=== PATIENT | male | born 1970 | race Caucasian/White ===

== ENCOUNTER 2017-01-13 00:59 | Emergency (ER) | payer BC ==
[2017-01-13] MEDS ORDERED: DUONEB 0.5-3 MG/3 ml Neb IH ONE (01:04)
[2017-01-13] MEDS ORDERED: Sodium Chloride 0.9% 1000 ML 0 ML ONE (01:04)
[2017-01-13] MEDS ORDERED: solu-MEDROL 125 MG ONE (01:04)
[2017-01-13] MEDS ORDERED: PROVENTIL 2.5 MG/3 ML NEB IH ONE ×4 (01:05→01:19)
[2017-01-13] MEDS ORDERED: Robitussin AC Syrup Unit Dose Cup PO PRN (01:07)
[2017-01-13] MEDS ORDERED: Rocephin 1000 MG INJ IM ONE (01:08)
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
[2017-01-13] MEDS ORDERED: DECADRON 10MG INJ. IM ONE (01:18)
[2017-01-13] MEDS ORDERED: Robitussin AC Syrup Unit Dose Cup ONE (01:20)
[2017-01-13] MEDS ORDERED: Rocephin 1000 MG INJ ONE (01:20)
[2017-01-13] MEDS ORDERED: XYLOCAINE 1% HCL 20 ML MDV ONE (01:21)
[2017-01-13] MEDS ORDERED: DECADRON 10MG INJ. ONE (01:27)
[2017-01-13 02:28] VITALS: BP 138/88; PULSE 95; O2SAT 96
== END 2017-01-13 02:30 | disposition home or self-care (01) ==
LOC: ED 00:59
DX: J45.909 Unspecified asthma, uncomplicated (principal); J02.9 Acute pharyngitis, unspecified
CPT/HCPCS: 94640; 96372; 99284; J0696; J1100; J2930; A9270-GY

== ENCOUNTER 2017-12-19 03:03 | Emergency (ER) | payer BC ==
[2017-12-19] MEDS ORDERED: PROVENTIL 2.5 MG/3 ML NEB IH ONE ×4 (03:10→04:13)
[2017-12-19] MEDS ORDERED: solu-MEDROL 125 MG IV ONE (03:10)
[2017-12-19] MEDS ORDERED: solu-MEDROL 125 MG ONE (03:14)
--- NOTE | 2017-12-19 03:15 | ERPHSYRPT ---
- History of Present Illness Time Seen by Provider: 12/19/17 03:08 Source: patient Exam Limitations: no limitations Physician History: This is a 47-year-old white male with history of asthma he arrives with complaint of shortness of breath for approximately a week he states he's been wheezing. He states he was seen by his family doctor placed on steroids he states he ran out of steroids he states for the last 2 days he's had increasing cough wheezing and shortness of breath. He has pain with deep breathing in his chest otherwise not. He has no fevers nausea or vomiting. Past medical history includes asthma. Past surgical history includes tonsillectomy and adenoidectomy. Social history former smoker Timing/Duration: week(s) (one week) Activities at Onset: none Severity of Dyspnea-Max: moderate Severity of Dyspnea-Current: moderate Possible Cause: occasional episodes Modifying Factors: Improves With: albuterol inhaler Associated Symptoms: cough, chest pain/discomfort (pain with deep breathing), wheezing, No edema, No fever, No insomnia, No loss of appetite, No lightheadedness, No weakness, No ankle swelling, No chills, No hemoptysis, No calf pain, No dizziness, No heaviness, No heart racing, No lightheadedness, No leg swelling, No muscle spasms feet, No muscle spasms hands, No painful breathing, No productive cough, No sweating, No tightness, No tingling face, No tingling hands International travel in last 2 weeks: No Allergies/Adverse Reactions: No Known Drug Allergies Allergy (Verified 01/13/17 01:00) Home Medications: Albuterol Sulfate [Proair Hfa] 8.5 gm IH QIDPRN PRN 10/03/15 [History] Fluticasone/Vilanterol [Breo Ellipta 100-25 Mcg INH] 1 each IH DAILY 10/03/15 [ History] Montelukast Sodium [Singulair] 10 mg PO DAILY 01/13/17 [History] Hx Tetanus, Diphtheria Vaccination/Date Given: Yes Hx Influenza Vaccination/Date Given: No Hx Pneumococcal Vaccination/Date Given: No - Review of Systems Constitutional: No Fever, No Chills Eyes: No Symptoms Ears, Nose, & Throat: No Symptoms Respiratory: Cough, Dyspnea, Wheezing Cardiac: Chest Pain (anterior chest pain with deep breathing) Abdominal/Gastrointestinal: No Abdominal Pain, No Nausea, No Vomiting, No Diarrhea Genitourinary Symptoms: No Dysuria Musculoskeletal: No Back Pain, No Neck Pain Skin: No Rash Neurological: No Dizziness, No Focal Weakness, No Sensory Changes Psychological: No Symptoms Endocrine: No Symptoms Hematologic/Lymphatic: No Symptoms Immunological/Allergic: No Symptoms All Other Systems: Reviewed and Negative - Past Medical History Pertinent Past Medical History: Yes Neurological History: No Pertinent History ENT History: No Pertinent History Cardiac History: No Pertinent History Respiratory History: Asthma Endocrine Medical History: No Pertinent History Musculoskeletal History: No Pertinent History GI Medical History: No Pertinent History History: No Pertinent History Psycho-Social History: No Pertinent History Male Reproductive Disorders: No Pertinent History - Past Surgical History Past Surgical History: No Neuro Surgical History: No Pertinent History Cardiac: No Pertinent History Respiratory: No Pertinent History Gastrointestinal: No Pertinent History Genitourinary: No Pertinent History Musculoskeletal: No Pertinent History Male Surgical History: No Pertinent History Other Surgical History: tonsilectomy - Social History Smoking Status: Former smoker Exposure to second hand smoke: No Drug Use: none Patient Lives Alone: No Significant Family History: no pertinent family hx - Nursing Vital Signs Nursing Vital Signs: Initial Vital Signs Temperature 98.0 F 12/19/17 03:08 Pulse Rate 92 H 12/19/17 03:08 Respiratory Rate 20 12/19/17 03:08 Blood Pressure 159/88 12/19/17 03:08 O2 Sat by Pulse Oximetry 91 L 12/19/17 03:08 Pain Scale Pain Intensity 4 - Physical Exam General Appearance: mild distress Eye Exam: PERRL/EOMI Ears, Nose, Throat Exam: hearing grossly normal, normal ENT inspection, normal pharynx, No abnormal TM (R), No abnormal TM (L), No sinus pain/drainage, No hearing decreased, No nasal congestion, No pharyngeal erythema, No tonsillar exudate, No tonsillar swelling Neck Exam: normal inspection, supple Respiratory Exam: diminished breath sounds, wheezing Cardiovascular/Chest Exam: normal heart sounds Abdominal/Gastrointestinal Exam: soft, No tenderness, No distention, No mass Extremity Exam: non-tender, normal range of motion, normal inspection, no calf tenderness, no pedal edema Peripheral Pulses Exam: dorsalis-pedis (R): 2+, dorsalis-pedis (L): 2+ Neurologic Exam: alert, oriented x 3, cooperative, game show host II-XII nml as tested, sensation nml, No motor deficits Skin Exam: normal color, warm, No dry SpO2 Interpretation: normal (91%) - Course Nursing assessment & vital signs reviewed: Yes EKG Interpreted by Me: RATE (93 bpm), Sinus Rhythm, NORMAL AXIS, Other (EKG: Sinus rhythm, 93 bpm, normal axis, no acute ST or T wave changes, normal EKG) - Radiology Exams Chest X-ray Interpretation: Interpreted by me, Other (no acute isease process noted) Ordered Tests: Active Orders 24 hr Category Date Time Status Delinquency Prevention Social Worker STAT Care 12/19/17 03:10 Active EKG-ER Only STAT Care 12/19/17 03:10 Active IV Insertion STAT Care 12/19/17 03:10 Active Pulse Oximetry (ED) STAT Care 12/19/17 03:10 Active CHEST 1 VIEW (PORTABLE) Stat Exams 12/19/17 03:10 Taken CBC W DIFF Stat Lab 12/19/17 03:20 Completed CMP Stat Lab 12/19/17 03:20 Completed VENOUS BLOOD GAS Stat Lab 12/19/17 03:27 Completed Respiratory Nebulizer STAT RT 12/19/17 03:11 Completed Respiratory Nebulizer STAT RT 12/19/17 04:08 Completed Medication Summary Discontinued Medications Generic Name Dose Route Start Last Admin Trade Name Muraliq PRN Reason Stop Dose Admin Albuterol Sulfate 2.5 mg 12/19/17 03:10 12/19/17 03:19 Proventil 2.5 Mg/3 Ml Neb IH 12/19/17 03:11 2.5 mg STAT ONE Administration Albuterol Sulfate Confirm 12/19/17 03:16 Proventil 2.5 Mg/3 Ml Neb Administered 12/19/17 03:17 Dose 2.5 mg IH .STK-MED ONE Albuterol Sulfate 2.5 mg 12/19/17 04:08 12/19/17 04:14 Proventil 2.5 Mg/3 Ml Neb IH 12/19/17 04:09 2.5 mg STAT ONE Administration Albuterol Sulfate Confirm 12/19/17 04:13 Proventil 2.5 Mg/3 Ml Neb Administered 12/19/17 04:14 Dose 2.5 mg IH .STK-MED ONE Azithromycin 500 mg 12/19/17 04:23 Zithromax 250 Mg Tablet PO 12/19/17 04:24 STAT ONE Methylprednisolone Sodium Succinate 125 mg 12/19/17 03:10 12/19/17 03:16 Solu-Medrol 125 Mg IV 12/19/17 03:11 125 mg STAT ONE Administration Methylprednisolone Sodium Succinate Confirm 12/19/17 03:14 Solu-Medrol 125 Mg Administered 12/19/17 03:15 Dose 125 mg .ROUTE .STK-MED ONE Lab/Rad Data: Laboratory Result Diagrams 12/19/17 03:20 12/19/17 03:20 Laboratory Results 12/19/17 12/19/17 12/19/17 Range/Units 03:27 03:20 03:20 WBC 12.7 H (4.0-10.5) K/mm3 RBC 5.06 (4.1-5.6) M/mm3 Hgb 15.5 (12.5-18.0) gm/dl Hct 45.2 (42-50) % MCV 89.3 (78-100) fl MCH 30.6 (26-32) pg MCHC 34.3 (32-36) g/dl RDW 13.7 (11.5-14.0) % Plt Count 282 (150-450) K/mm3 MPV 9.7 H (6-9.5) fl Gran % 75.5 H (36.0-66.0) % Eos # (Auto) 0.34 (0-0.5) Lymphocytes % 14.8 L (24.0-44.0) % Monocytes % 6.8 (0.0-12.0) % Eosinophils % 2.7 (0.00-5.0) % Basophils % 0.2 (0.0-0.4) % Absolute Granulocytes 9.61 H (1.4-6.9) Basophils # 0.03 (0-0.4) VBG pH 7.38 (7.32-7.42) VBG pCO2 at Pat Temp 50 (42-55) mm/Hg VBG pO2 at Pat Temp 23 L (25-40) mm/Hg VBG HCO3 29.6 H* (22-28) meq/L VBG O2 Sat (Marko) 52.1 L (95-100) VBG Base Excess 3.2 H (-2.0-2.0) VBG Hemoglobin 16.1 VBG Carboxyhemoglobin 2.2 (0.0-6.9) % T HGB POC Potassium 3.4 L (3.5-5.1) Sodium 141 (137-145) mmol/L Potassium 3.4 L (3.5-5.1) mmol/L Chloride 101 (98-107) mmol/L Carbon Dioxide 28 (22-30) mmol/L Anion Gap 15.4 H (5-15) MEQ/L BUN 15 (9-20) mg/dL Creatinine 0.80 (0.66-1.25) mg/dL Estimated GFR > 60 ML/MIN Glucose 98 (74-106) mg/dL Calcium 10.1 (8.4-10.2) mg/dL Total Bilirubin 0.40 (0.2-1.3) mg/dL AST 18 (17-59) U/L ALT 26 (0-50) U/L Alkaline Phosphatase 70 (38-126) U/L Serum Total Protein 7.5 (6.3-8.2) g/dL Albumin 4.5 (3.5-5.0) g/dL - Progress Progress: improved Air Movement: fair Progress Note: 12/19/17 04:08 47-year-old white male with history of asthma with complaint of shortness of breath coughing for a week he states that he was placed on prednisone by his family doctor however he has been out of it and for the last 2 days he has been feeling worse. Patient with mild bilateral wheezes throughout on arrival patient with a normal O2 saturation Patient's chest x-ray no acute disease process noted EKG normal sinus rhythm 93 bpm normal axis no acute ST or T wave changes normal EKG patient with venous gases that showed pH of 7.38 PCO2 of 50 chemistry is essentially normal and patient with a white count of 12.7 hemoglobin 15 5 hematocrit 45.2 patient is feeling better after albuterol treatment and Solu-Medrol 125 IV. I will give patient another albuterol treatment Patient feels like he can most likely go home we will reassess after second albuterol treatment Anticipate discharged with tapering dose of prednisone and Zithromax patient to continue albuterol treatments at home. 12/19/17 04:28 Patient is feeling better. Plan to discharge. Patient has a nebulizer at home. Patient will be given Zithromax 500 mg here in the emergency room given a prescription for additional Zithromax and taper of prednisone. - Departure Time of Disposition: 04:29 Departure Disposition: Home Clinical Impression: Asthma exacerbation Qualifiers: Asthma severity: moderate Asthma persistence: unspecified Qualified Code(s): J45.901 - Unspecified asthma with (acute) exacerbation Condition: Fair Critical Care Time: No Referrals: JOSEPH FALK [Primary Care Provider] - Additional Instructions: Return home. Plenty of fluids. Use your albuterol inhaler every 4-6 hours as needed. Tapering dose of prednisone as directed. Zithromax Z-Miah as prescribed. Follow-up with your family doctor. Return for acute distress or for severe symptoms. Prescriptions: Azithromycin 250 mg [Zithromax 250 MG TABLET] 250 mg PO DAILY #4 tablet
[2017-12-19 03:27] LABS: BASOPHIL % 0.2 % (0.0-0.4); Basophil (Absolute #) 0.03 (0-0.4); Eosinophil % 2.7 % (0.00-5.0); Eosinophil (Absolute #) 0.34 (0-0.5); Granulocyte Absolute (ANC) 9.61 (1.4-6.9); Granulocytes % 75.5 % (36.0-66.0); Hematocrit 45.2 % (42-50); Hemoglobin 15.5 gm/dl (12.5-18.0); Lymphocyte (Absolute #) 1.89 (1.0-4.6); Lymphocytes % 14.8 % (24.0-44.0); Mean Cell Volume 89.3 fl (78-100); Mean Corpuscular Hemoglobin 30.6 pg (26-32); Mean Corpuscular Hgb Concent. 34.3 g/dl (32-36); Mean Platelet Volume 9.7 fl (6-9.5); Monocyte (Absolute #) 0.87 (0.0-1.3); Monocytes % 6.8 % (0.0-12.0); Platelet Count 282 K/mm3 (150-450); Red Blood Count 5.06 M/mm3 (4.1-5.6); Red Cell Distribution Width 13.7 % (11.5-14.0); White Blood Count 12.7 K/mm3 (4.0-10.5)
[2017-12-19 03:37] LABS: VBG BASE EXCESS 3.2 (-2.0-2.0); VBG CARBOXYHEMOGLOBIN 2.2 % T HGB (0.0-6.9); VBG HCO3- 29.6 meq/L (22-28); VBG HEMOGLOBIN 16.1; VBG O2 SATURATION 52.1 (95-100); VBG POTASSIUM 3.4 (3.5-5.1); VBG pH 7.38 (7.32-7.42)
[2017-12-19 03:43] LABS: ALBUMIN 4.5 g/dL (3.5-5.0); ALKALINE PHOSPHATASE 70 U/L (38-126); ANION GAP 15.4 MEQ/L (5-15); BLOOD UREA NITROGEN 15 mg/dL (9-20); CHLORIDE 101 mmol/L (98-107); Calcium 10.1 mg/dL (8.4-10.2); Carbon Dioxide 28 mmol/L (22-30); Glucose 98 mg/dL (74-106); Potassium 3.4 mmol/L (3.5-5.1); SGOT/AST 18 U/L (17-59); SGPT/ALT 26 U/L (0-50); SODIUM 141 mmol/L (137-145); Total Protein 7.5 g/dL (6.3-8.2)
[2017-12-19 04:19] VITALS: O2SAT 91
[2017-12-19] MEDS ORDERED: Zithromax 250 MG TABLET PO ONE (04:23)
[2017-12-19] MEDS ORDERED: Zithromax 250 MG TABLET ONE (04:42)
[2017-12-19 04:50] VITALS: BP 146/90; PULSE 99
--- NOTE | 2017-12-19 09:45 | XRAY ---
Indication: Wheezing. History asthma. Comparison: December 17, 2016. Portable chest demonstrates normal heart and lungs. Bony thorax intact. No new/acute findings.
== END 2017-12-19 05:14 | disposition home or self-care (01) ==
LOC: ED 03:03
DX: J45.901 Unspecified asthma with (acute) exacerbation (principal); R07.9 Chest pain, unspecified
CPT/HCPCS: 36000; 36415; 71045; 80053; 82805; 85025; 93005; 93041; 94640; 96374; 99284; J2930; A9270-GY

== ENCOUNTER 2019-01-08 02:34 | Emergency (ER) | payer BC ==
[2019-01-08 02:46] VITALS: BP 141/75; PULSE 116; O2SAT 96
[2019-01-08] MEDS ORDERED: Hydromorphone 1 mg/ml Ampule IM ONE (03:10)
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
[2019-01-08] MEDS ORDERED: Phenergan 25 MG INJ IM ONE (03:11)
[2019-01-08] MEDS ORDERED: Hydromorphone 1 mg/ml Ampule ONE (03:18)
[2019-01-08] MEDS ORDERED: Phenergan 25 MG INJ ONE (03:18)
[2019-01-08] MEDS ORDERED: Norco 10/325 MG Tablet PO ONE (03:44)
[2019-01-08] MEDS ORDERED: Norco 10/325 MG Tablet ONE (03:49)
--- NOTE | 2019-01-08 08:52 | XRAY ---
Indication: Pain following injury. Comparison: None 3 views of the left hand demonstrates old 5th metacarpal shaft fracture and a mildly displaced/comminuted acute fracture involving the 5th metacarpal base with soft tissue swelling. Remaining hand unremarkable.
== END 2019-01-08 04:00 | disposition home or self-care (01) ==
LOC: ED 02:34
DX: S62.307A Unspecified fracture of fifth metacarpal bone, left hand, initial encounter for closed fracture (principal); W22.8XXA Striking against or struck by other objects, initial encounter; Y93.B1 Activity, exercise machines primarily for muscle strengthening; Y92.89 Other specified places as the place of occurrence of the external cause; Y99.9 Unspecified external cause status
CPT/HCPCS: 29126; 73130; 96372; 99284; J1170; J2550; A9270-GY

== ENCOUNTER 2019-08-17 09:19 | Day surgery (SDC) | payer BC ==
[~2019-08-17 09:19] MED LIST: Ak-Dilate OPHTHALMIC*** 1.065 ML, Cyclogyl 1% OPHTH SOL 5 ML 1.065 ML, GATIFLOXACIN 0.5... OP ONE; Lactated Ringers 1,000 ML IV ONE; Lactated Ringers 1,000 ML IV SCH; TETRACAINE 0.5% STERI-UNIT SOL OP ONE
[2019-08-17] MEDS ORDERED: Epinephrine Preservative Free 1 MG/ML INTRAOP ONE (11:00)
[2019-08-17] MEDS ORDERED: BETADINE 5% OPHTHALMIC 30 ML OP ONE (11:00)
[2019-08-17] MEDS ORDERED: BSS 500 ML, Fortaz/Tazicef 1 GM** 0.2 G IO ONE ×2 (11:00)
[2019-08-17] MEDS ORDERED: LIDOCAINE HCL 1% AMPUL 5 ML IJ ONE (11:00)
[2019-08-17] MEDS ORDERED: Versed 2 MG/2 ML Injection ONE (11:16)
[2019-08-17] MEDS ORDERED: DIPRIVAN 200 MG/20 ML IV ONE ×2 (11:20)
[2019-08-17] MEDS ORDERED: ACETAZOLAMIDE 250 MG TABLET PO ONE (11:30)
[2019-08-17] MEDS ORDERED: Zofran 4 MG/2 ML VIAL IV PRN (11:30)
[2019-08-17 12:19] VITALS: BP 151/81; PULSE 63; O2SAT 97
--- NOTE | 2019-08-18 08:37 | OP ---
DATE/TIME OF OPERATION: 08/17/2019 1114 TIME DICTATED: 1302 PREOPERATIVE DIAGNOSIS: Senile cataract of right eye. POSTOPERATIVE DIAGNOSIS: Senile cataract of right eye. SURGEON: Darion Gonzalez MD SPRING ASSEMBLER: None. OPERATION: Cataract extraction of right eye with an intraocular lens implant. STANDARD __X__ COMPLEX ANESTHESIA: MAC. ___X___ Monitored anesthesia care in combination with topical and intra-cameral anesthesia (because of the established specific risk of reflux, arrhythmias, or an anxiety attack associated with ocular manipulation as well as difficulty of the warm in to manage such potentially catastrophic events while simultaneously attempting to complete the surgical procedure, it was deemed necessary for the patient's safety to have an anesthesiologist or a nurse drive in theater attendant present during the procedure whenever possible. The anesthesiologist or the nurse drive in theater attendant was utilized to monitor and regulate the intravenous sedation of the patient, so the patient was cooperative, relaxed, and comfortable). Topical anesthesia using Tetracaine eye drops together with intra cameral anesthesia using Lidocaine 1% MPF. The nurse was utilized to monitor the patient. ANESTHESIA PROVIDER: Angel Garcia CRNA. COMPLICATIONS: None. BLOOD LOSS: None. INDICATIONS: The patient is undergoing cataract surgery in the hopes of eliminating the visual complaints and difficulty. PROCEDURE: After arriving at the facility's outpatient surgery area, an IV was started; the patient was given 5 mg of p.o. Versed. (If an anesthesia provider was not monitoring the patient) The patient was then given topical anesthetic Tetracaine eye drops. A cotton pellet was soaked into a solution of a combination of Zymaxid 0.5%, Christopher-Synephrine 2.5% and Ocufen (other drops might have been substituted referenced in the patient's record). The pellet was inserted by the RN into the lower conjunctival cul-de-sac with a sterile forceps and left for 20 minutes. The pellet was then removed by the RN with a sterile forceps before taking the patient to the operating room. The preoperative area nurse identified the patient and marked the correct eye to be operated on. I identified the correct eye to be operated on and marked it appropriately in the outpatient surgery area. The patient was then taken into the operating room. Tetracaine eye drops were installed again in the correct eye. The eyelids and the lashes and the lid margins were scrubbed with Betadine solution. One drop of the diluted Betadine solution was placed in the conjunctival cul-de-sac for 45 seconds and then was irrigated. A drop of Tetracaine Gel was placed in the conjunctival cul-de-sac. The patient's forehead was taped to secure it during the procedure. The patient was monitored. The patient was then draped in the usual way for this procedure. An eye speculum was used to separate the eyelids. The eye was then fixated and a temporal 2.5 mm incision was made in the clear cornea temporally at the limbus. Through the incision, 0.25 cc of 1% non-preserved lidocaine was injected into the anterior chamber for intracameral anesthesia. The anterior chamber was then filled with viscoelastic. The pupil was small. I felt that it would be safer to mechanically dilate the pupil. A Malyugin ring was used at this point which dilated the pupil. That was removed at the end of the procedure prior to aspiration of the viscoelastic from the anterior chamber and posterior to the intraocular lens implant. The cataract had a great amount of cortical changes. That rendered seeing the anterior capsule difficult for a safe performance of an anterior capsulotomy. I injected an air bubble into the anterior chamber. I then injected 1 ML of vision blue solution into the anterior chamber. The vision blue solution was irrigated from the anterior chamber after 30 seconds. The anterior capsule was stained which facilitated performing the anterior capsulotomy safely. After that was completed, a cystotome was introduced into the anterior chamber and a round anterior capsulotomy was performed. The capsule was removed by a forceps. Hydrodissection was next carried utilizing a 25-gauge cannula and balanced salt solution to delineate the cortical material from the capsule and the nucleus from the cortical material. The nucleus was rotated freely into the capsular bag with no difficulty. The phaco tip of the [facility] Phacoemulsifier was introduced into the anterior chamber and two grooves were made into the nucleus 90 degrees apart. Using two spatulas resulted into the nucleus being fractured into four quadrants. The phaco tip was then used to remove each quadrant of the nucleus. Viscoelastic was used during this process to protect the corneal endothelium. Once the entire nucleus was removed, the phaco tip then was removed and the irrigation tip was introduced into the eye and the cortex was removed. The posterior capsule was polished. It was noticed that there was a tear into the posterior capsule with few vitreous strands into the pupil plan. An anterior vitrectomy was performed. A 17.50 diopter, [id number], posterior chamber lens implant, was inspected and found to be grossly normal. The implant was inserted into the implant injector cartridge; Viscoelastic again was introduced into the anterior chamber, which filled the capsular bag. The implant injector's cartridge tip was placed at the limbal wound and the posterior chamber implant was released into the capsular bag and rotated appropriately. The implant was found to be into the capsular bag and it was centered. 0.2 ml of Tri-Moxi was introduced via 27 gauge cannula into the vitreous cavity through the ciliary processes. Viscoelastic was aspirated from the anterior chamber and posterior to the intraocular lens implant from the capsular bag using the irrigating tip. The anterior chamber was irrigated and filled with 5 cc antibiotic solution (500 cc of BSS plus 2 ml of Fortaz 100 mg/ml) ( if patient was not allergic to the medication). The lips of the corneal incision were hydrated using BSS solution. The anterior chamber was checked and found to be water tight. ___X__ One drop each of antibiotic, steroid and NSAID drops (refer to chart for drops used) were placed in the conjunctival cul-de-sac of the operated eye. Patient tolerated the procedure quite well and left the operating room in satisfactory condition. DISCHARGE SUMMARY: The patient was released in stable condition. The patient and those with the patient were given an instruction sheet as of how to care for the eye after surgery as well as counseling on any abnormal laboratory studies by the postoperative RN. The patient was also given an appointment card for follow-up in the office and is to call immediately for any difficulties including but not limited to pain in the eye, decreased vision, discharge from the eye, headache and or fever. DISCHARGE DIAGNOSIS: Pseudophakia of right eye.
== END 2019-08-17 12:20 | disposition home or self-care (01) ==
LOC: SDC 09:19
PROVIDERS: ATTEND Ophthalmology
DX: H25.811 Combined forms of age-related cataract, right eye (principal); J45.909 Unspecified asthma, uncomplicated; Z79.899 Other long term (current) drug therapy
CPT/HCPCS: C1780; J0171; J2250; J2704; A9270-GY

== ENCOUNTER 2020-09-12 21:17 | Observation (INO) | payer BC ==
[~2020-09-12 21:17] MED LIST changes: -Ak-Dilate OPHTHALMIC*** 1.065 ML, Cyclogyl 1% OPHTH SOL 5 ML 1.065 ML, GATIFLOXACIN 0.5... OP ONE; +DUONEB 0.5-3 MG/3 ml Neb IH ONE; -Lactated Ringers 1,000 ML IV ONE; -Lactated Ringers 1,000 ML IV SCH; -TETRACAINE 0.5% STERI-UNIT SOL OP ONE
[2020-09-12 21:28] LABS: A-aADO2 533; ABG HEMOGLOBIN 14.7; ABG POTASSIUM 4.3 (3.5-5.1); ABG SITE lr; ARTERIAL BLD GAS O2 SATURATION 99.4 % (95-100); ARTERIAL BLOOD GAS BASE EXCESS -15.5 (-2.0-2.0); ARTERIAL BLOOD GAS FIO2 100 %; ARTERIAL BLOOD GAS PCO2 39 mmHg (35-45); ARTERIAL BLOOD GAS PO2 131 mmHg (75-100); ARTERIAL BLOOD GAS pH 7.13 (7.35-7.45); CARBOXYHEMOGLOBIN 1.3 % THgb (0.0-6.9); HGB O2 SAT 97.3 g/dF (94-100); Lactic Acid 12.4 (0.4-2.0); Methhemoglobin 0.7 % (1.4-1.5)
[2020-09-12 21:29] LABS: ALLEN TEST OK? y
[2020-09-12 21:35] LABS: Hematocrit 45.1 % (42-50); Hemoglobin 14.5 gm/dl (12.5-18.0); Mean Corpuscular Hemoglobin 30.9 pg (26-32); Mean Corpuscular Hgb Concent. 32.2 g/dl (32-36); Mean Platelet Volume 10.6 fl (7.5-11.0); Platelet Count 332 K/mm3 (150-450); Red Cell Distribution Width 13.2 % (11.5-14.0); White Blood Count 18.1 K/mm3 (4.0-10.5)
--- NOTE | 2020-09-12 21:35 | ERPHSYRPT ---
- History of Present Illness Time Seen by Provider: 09/12/20 21:18 Source: patient Exam Limitations: no limitations Patient Subjective Stated Complaint: . Triage Nursing Assessment: . Physician History: Patient is a 50-year-old male with a history of asthma presents to our ED via EMS unresponsive. Upon initial management patient awoke became alert and described the situation before arrival. Patient states he has a history of asthma. Patient does not have an inhaler. Patient felt his asthma come on rather acutely. Patient was trying to calm himself down. However he apparently syncopized. Patient was found by family member unresponsive. EMS was called. Patient received oxygen and EKG. However upon arrival to our ED patient was assessed. Resuscitation was initiated patient became alert and oriented x3. Patient denies pain. No chest pain. Patient states that he initially felt short of breath but feels well now. No nausea or vomiting. No incontinence. No trauma reported. No neck pain. Symptoms are moderate in intensity. No specific trigger to asthma. Timing/Duration: today Severity: moderate Modifying Factors: Improves With: nothing Associated Symptoms: No nausea, No vomiting, No abdominal pain, No diaphoresis, No cough, No chills, No fever, No loss of appetite, No malaise, No rash, No syncope Allergies/Adverse Reactions: No Known Drug Allergies Allergy (Verified 08/17/19 09:50) Home Medications: Albuterol Sulfate [Proair Hfa] 8.5 gm IH QIDPRN PRN 10/03/15 [History] Fluticasone/Vilanterol [Breo Ellipta 100-25 Mcg INH] 1 each IH DAILY 10/03/15 [History] Tiotropium Fontanelle [Spiriva Respimat] 1.25 mcg NEB DAILY 09/12/20 [History] Hx Tetanus, Diphtheria Vaccination/Date Given: No (unknown) Hx Influenza Vaccination/Date Given: No (unknown) Hx Pneumococcal Vaccination/Date Given: No (unknown) Immunizations Up to Date: No (unknown) Travel Risk - International Travel Have you traveled outside of the country in past 3 weeks: No - Coronavirus Screening Are you exhibiting any of the following symptoms?: No Close contact with a COVID-19 positive Pt in past 14-21 Days: No - Review of Systems Constitutional: No Symptoms, No Fever, No Chills Eyes: No Symptoms Ears, Nose, & Throat: No Symptoms Respiratory: No Symptoms, No Cough, No Dyspnea Cardiac: No Symptoms, No Chest Pain, No Edema, No Syncope Abdominal/Gastrointestinal: No Symptoms, No Abdominal Pain, No Nausea, No Vomiting, No Diarrhea Genitourinary Symptoms: No Symptoms, No Dysuria Musculoskeletal: No Symptoms, No Back Pain, No Neck Pain Skin: No Symptoms, No Rash Neurological: No Symptoms, No Dizziness, No Focal Weakness, No Sensory Changes Psychological: No Symptoms Endocrine: No Symptoms Hematologic/Lymphatic: No Symptoms Immunological/Allergic: No Symptoms All Other Systems: Reviewed and Negative - Past Medical History Pertinent Past Medical History: Yes Neurological History: No Pertinent History ENT History: No Pertinent History Cardiac History: No Pertinent History Respiratory History: Asthma Endocrine Medical History: No Pertinent History Musculoskeletal History: No Pertinent History GI Medical History: No Pertinent History History: No Pertinent History Psycho-Social History: No Pertinent History Male Reproductive Disorders: No Pertinent History - Past Surgical History Past Surgical History: Yes Neuro Surgical History: No Pertinent History Cardiac: No Pertinent History Respiratory: No Pertinent History Gastrointestinal: No Pertinent History Genitourinary: No Pertinent History Musculoskeletal: No Pertinent History Male Surgical History: No Pertinent History Other Surgical History: tonsilectomy - Social History Smoking Status: Never smoker Exposure to second hand smoke: No Drug Use: none Patient Lives Alone: No Significant Family History: no pertinent family hx - Nursing Vital Signs Nursing Vital Signs: Initial Vital Signs Pulse Rate 142 H 09/12/20 21:17 Respiratory Rate 26 H 09/12/20 21:17 O2 Sat by Pulse Oximetry 98 09/12/20 21:17 Pain Scale Pain Intensity 0 - Physical Exam General Appearance: no apparent distress, alert Eye Exam: PERRL/EOMI, eyes nml inspection Ears, Nose, Throat Exam: normal ENT inspection, TMs normal, pharynx normal, moist mucous membranes Neck Exam: normal inspection, non-tender, supple, full range of motion Respiratory Exam: diminished breath sounds, wheezing, other (Breath sounds are diminished. Patient is wheezing throughout. Findings consistent with history of asthma.), No respiratory distress Cardiovascular Exam: regular rate/rhythm, normal heart sounds, normal peripheral pulses Gastrointestinal/Abdomen Exam: soft, normal bowel sounds, No tenderness, No mass Back Exam: normal inspection, normal range of motion, No CVA tenderness, No vertebral tenderness Extremity Exam: normal inspection, normal range of motion, pelvis stable, other (No lower extremity pitting edema.), No pedal edema Neurologic Exam: alert, oriented x 3, cooperative, normal mood/affect, nml cerebellar function, nml station & gait, sensation nml, No motor deficits Skin Exam: normal color, warm, dry, No rash Lymphatic Exam: No adenopathy SpO2 Interpretation: normal SpO2: 97 O2 Delivery: Room Air - Course Nursing assessment & vital signs reviewed: Yes - Radiology Exams Chest X-ray Interpretation: Interpreted by me (No pneumothorax. No consolidation. No infiltrate. Normal bony thorax. No acute findings.) - CT Exams Chest CT Interpretation: Tele-radiologist Report (CTA chest is negative for pulmonary embolus or airspace infiltrate. Left lower lobe nodule measuring 8.[address] scan. Follow-up at 3-month via PET scan/repeat CT versus biopsy advised.) Head CT Interpretation: Tele-radiologist Report (CT head without contrast negative for intracranial hemorrhage or mass-effect.) Ordered Tests: Active Orders 24 hr Category Date Time Status Shoulder Boner STAT Care 09/12/20 21:25 Active EKG-ER Only STAT Care 09/12/20 21:24 Active IV Insertion STAT Care 09/12/20 21:24 Active Pulse Oximetry (ED) STAT Care 09/12/20 21:24 Active CHEST 1 VIEW (PORTABLE) Stat Exams 09/12/20 21:28 Taken CHEST WITH CONTRAST [CT] Stat Exams 09/12/20 21:54 Ordered HEAD WITHOUT CONTRAST [CT] Stat Exams 09/12/20 21:54 Ordered ARTERIAL BLOOD GASES Urgent Lab 09/12/20 21:15 Completed ARTERIAL BLOOD GASES Urgent Lab 09/12/20 21:59 Completed BLOOD CULTURE Stat Lab 09/12/20 21:25 Ordered CBC W DIFF Stat Lab 09/12/20 21:25 Completed CMP Stat Lab 09/12/20 21:25 Completed D-DIMER QUANTITATIVE Stat Lab 09/12/20 21:25 Completed Lactic Acid Urgent Lab 09/12/20 21:15 Completed MAGNESIUM Stat Lab 09/12/20 21:25 Completed Manual Differential NC Stat Lab 09/12/20 21:25 Completed TROPONIN Q3H Lab 09/12/20 21:25 Completed TROPONIN Q3H Lab 09/13/20 00:30 Ordered TROPONIN Q3H Lab 09/13/20 03:30 Ordered TROPONIN Q3H Lab 09/13/20 06:30 Ordered TROPONIN Q3H Lab 09/13/20 09:30 Ordered Urine Triage Profile Stat Lab 09/12/20 23:17 Ordered Respiratory Therapy Assessment DAILY RT 09/12/20 21:31 Active Medication Summary Discontinued Medications Generic Name Dose Route Start Last Admin Trade Name Rufus PRN Reason Stop Dose Admin Albuterol/Ipratropium 3 ml 09/12/20 21:13 09/12/20 21:17 Duoneb 0.5-3 Mg/3 Ml Neb IH 09/12/20 21:14 3 ml STAT ONE Administration Sodium Chloride 1,000 mls @ 999 mls/hr 09/12/20 21:45 09/12/20 21:52 Sodium Chloride 0.9% 1000 Ml IV 09/12/20 22:45 999 mls/hr .Q1H1M STA Administration Sodium Chloride Confirm 09/12/20 21:49 Sodium Chloride 0.9% 1000 Ml Administered 09/12/20 21:50 Dose 1,000 mls @ ud .ROUTE .STK-MED ONE Methylprednisolone Sodium Succinate 125 mg 09/12/20 22:30 09/12/20 22:41 Solu-Medrol 125 Mg IV 09/12/20 22:31 125 mg STAT ONE Administration Methylprednisolone Sodium Succinate Confirm 09/12/20 22:31 Solu-Medrol 125 Mg Administered 09/12/20 22:32 Dose 125 mg .ROUTE .STK-MED ONE Lab/Rad Data: Laboratory Result Diagrams 09/12/20 21:25 09/12/20 21:25 Laboratory Results 09/12/20 09/12/20 09/12/20 Range/Units 23:17 21:59 21:31 WBC (4.0-10.5) K/mm3 RBC (4.1-5.6) M/mm3 Hgb (12.5-18.0) gm/dl Hct (42-50) % MCV (78-100) fl MCH (26-32) pg MCHC (32-36) g/dl RDW (11.5-14.0) % Plt Count (150-450) K/mm3 MPV (7.5-11.0) fl Segmented Neutrophils (36.-66.) % Lymphocytes (Manual) (24-44) % Monocytes (Manual) (0.0-12.0) % Platelet Estimate (NORMAL) RBC Morphology D-Dimer (215-500) ng/mL Puncture Site RIGHT BRACHIAL pCO2 38 (35-45) mmHg pO2 88 (75-100) mmHg Base Excess -2.9 L (-2.0-2.0) O2 Saturation 94.5 (94-100) g/dF ABG pH 7.37 (7.35-7.45) ABG HCO3 22.0 (22-28) ABG O2 Sat (Measured) 97.9 (95-100) % Ludwig Test NOT APPLICABLE A-a Gradient 64 a/A Ratio 0.58 Hemoglobin 14.1 Carboxyhemoglobin 2.5 (0.0-6.9) % THgb Methemoglobin 0.9 L (1.4-1.5) % Potassium 4.1 (3.5-5.1) Temperature 37.0 C POC O2 Flow Rate 28 % Sodium (137-145) mmol/L Chloride (98-107) mmol/L Carbon Dioxide (22-30) mmol/L Anion Gap (5-15) MEQ/L BUN (9-20) mg/dL Creatinine (0.66-1.25) mg/dL Estimated GFR ML/MIN Glucose (74-106) mg/dL Lactic Acid (0.4-2.0) Calcium (8.4-10.2) mg/dL Magnesium (1.6-2.3) mg/dL Total Bilirubin (0.2-1.3) mg/dL AST (17-59) U/L ALT (0-50) U/L Alkaline Phosphatase (38-126) U/L Troponin I (0.000-0.034) ng/mL Serum Total Protein (6.3-8.2) g/dL Albumin (3.5-5.0) g/dL Urinalys Dipstick Clnc MAIN LAB Urine Color YELLOW (YELLOW) Urine Appearance CLEAR (CLEAR) Urine pH 5.5 (5-6) Ur Specific [place] 1.025 (1.005-1.025) POC Urine Protein Conf 30 (Negative) Urine Ketones NEGATIVE (NEGATIVE) Urine Nitrite NEGATIVE (NEGATIVE) Urine Bilirubin NEGATIVE (NEGATIVE) Urine Urobilinogen 0.2 (0-1) mg/dL Urine Leukocytes NEGATIVE (NEGATIVE) Urine WBC (Auto) Pending Urine RBC (Auto) Pending U Epithel Cells (Auto) Pending Urine Bacteria (Auto) Pending Urine RBC TRACE-LYSED (0-5) Jerrell/ul Ur Culture Indicated? Pending Urine Glucose NEGATIVE (NEGATIVE) mg/dL SARS-CoV-2 (PCR) NEGATIVE (NEGATIVE) 09/12/20 09/12/20 09/12/20 Range/Units 21:25 21:25 21:25 WBC (4.0-10.5) K/mm3 RBC (4.1-5.6) M/mm3 Hgb (12.5-18.0) gm/dl Hct (42-50) % MCV (78-100) fl MCH (26-32) pg MCHC (32-36) g/dl RDW (11.5-14.0) % Plt Count (150-450) K/mm3 MPV (7.5-11.0) fl Segmented Neutrophils (36.-66.) % Lymphocytes (Manual) (24-44) % Monocytes (Manual) (0.0-12.0) % Platelet Estimate (NORMAL) RBC Morphology D-Dimer 587 H* (215-500) ng/mL Puncture Site pCO2 (35-45) mmHg pO2 (75-100) mmHg Base Excess (-2.0-2.0) O2 Saturation (94-100) g/dF ABG pH (7.35-7.45) ABG HCO3 (22-28) ABG O2 Sat (Measured) (95-100) % Ludwig Test A-a Gradient a/A Ratio Hemoglobin Carboxyhemoglobin (0.0-6.9) % THgb Methemoglobin (1.4-1.5) % Potassium 4.0 (3.5-5.1) Temperature C POC O2 Flow Rate % Sodium 138 (137-145) mmol/L Chloride 101 (98-107) mmol/L Carbon Dioxide 13 L* (22-30) mmol/L Anion Gap 28.5 H (5-15) MEQ/L BUN 18 (9-20) mg/dL Creatinine 0.95 (0.66-1.25) mg/dL Estimated GFR > 60.0 ML/MIN Glucose 175 H (74-106) mg/dL Lactic Acid (0.4-2.0) Calcium 9.5 (8.4-10.2) mg/dL Magnesium 2.2 (1.6-2.3) mg/dL Total Bilirubin 0.30 (0.2-1.3) mg/dL AST 34 (17-59) U/L ALT 31 (0-50) U/L Alkaline Phosphatase 59 (38-126) U/L Troponin I < 0.012 (0.000-0.034) ng/mL Serum Total Protein 7.4 (6.3-8.2) g/dL Albumin 4.5 (3.5-5.0) g/dL Urinalys Dipstick Clnc Urine Color (YELLOW) Urine Appearance (CLEAR) Urine pH (5-6) Ur Specific [place] (1.005-1.025) POC Urine Protein Conf (Negative) Urine Ketones (NEGATIVE) Urine Nitrite (NEGATIVE) Urine Bilirubin (NEGATIVE) Urine Urobilinogen (0-1) mg/dL Urine Leukocytes (NEGATIVE) Urine WBC (Auto) Urine RBC (Auto) U Epithel Cells (Auto) Urine Bacteria (Auto) Urine RBC (0-5) Jerrell/ul Ur Culture Indicated? Urine Glucose (NEGATIVE) mg/dL SARS-CoV-2 (PCR) (NEGATIVE) 09/12/20 09/12/20 Range/Units 21:25 21:15 WBC 18.1 H (4.0-10.5) K/mm3 RBC 4.70 (4.1-5.6) M/mm3 Hgb 14.5 (12.5-18.0) gm/dl Hct 45.1 (42-50) % MCV 96.0 (78-100) fl MCH 30.9 (26-32) pg MCHC 32.2 (32-36) g/dl RDW 13.2 (11.5-14.0) % Plt Count 332 (150-450) K/mm3 MPV 10.6 (7.5-11.0) fl Segmented Neutrophils 75 H (36.-66.) % Lymphocytes (Manual) 20 L (24-44) % Monocytes (Manual) 5 (0.0-12.0) % Platelet Estimate NORMAL (NORMAL) RBC Morphology NORMAL D-Dimer (215-500) ng/mL Puncture Site lr pCO2 39 (35-45) mmHg pO2 131 H* (75-100) mmHg Base Excess -15.5 L (-2.0-2.0) O2 Saturation 97.3 (94-100) g/dF ABG pH 7.13 L* (7.35-7.45) ABG HCO3 13.0 L* (22-28) ABG O2 Sat (Measured) 99.4 (95-100) % Ludwig Test y A-a Gradient 533 a/A Ratio 0.20 Hemoglobin 14.7 Carboxyhemoglobin 1.3 (0.0-6.9) % THgb Methemoglobin 0.7 L (1.4-1.5) % Potassium 4.3 (3.5-5.1) Temperature 37.0 C POC O2 Flow Rate 100 % Sodium (137-145) mmol/L Chloride (98-107) mmol/L Carbon Dioxide (22-30) mmol/L Anion Gap (5-15) MEQ/L BUN (9-20) mg/dL Creatinine (0.66-1.25) mg/dL Estimated GFR ML/MIN Glucose (74-106) mg/dL Lactic Acid 12.4 H (0.4-2.0) Calcium (8.4-10.2) mg/dL Magnesium (1.6-2.3) mg/dL Total Bilirubin (0.2-1.3) mg/dL AST (17-59) U/L ALT (0-50) U/L Alkaline Phosphatase (38-126) U/L Troponin I (0.000-0.034) ng/mL Serum Total Protein (6.3-8.2) g/dL Albumin (3.5-5.0) g/dL Urinalys Dipstick Clnc Urine Color (YELLOW) Urine Appearance (CLEAR) Urine pH (5-6) Ur Specific [place] (1.005-1.025) POC Urine Protein Conf (Negative) Urine Ketones (NEGATIVE) Urine Nitrite (NEGATIVE) Urine Bilirubin (NEGATIVE) Urine Urobilinogen (0-1) mg/dL Urine Leukocytes (NEGATIVE) Urine WBC (Auto) Urine RBC (Auto) U Epithel Cells (Auto) Urine Bacteria (Auto) Urine RBC (0-5) Jerrell/ul Ur Culture Indicated? Urine Glucose (NEGATIVE) mg/dL SARS-CoV-2 (PCR) (NEGATIVE) - Progress Progress: improved Progress Note: 09/12/20 23:44 Patient arrived to our ED unresponsive. Physical exam showed patient to be wheezing. Patient likely had a asthma attack with subsequent syncope and collapse. Patient was resuscitated in our ED. Neuro exam within normal limits. D-dimer positive. CT negative for PE. Incidental finding of 8 mm lung nodule. Follow-up will be required. I did have a detailed discussion regarding this finding with patient. Patient states he is aware he has got a lung nodule but did not know how big. Patient understands and agrees to follow-up with this midlung nodule. He will likely require a repeat CT scan in 3 months as per radiology recommendations. Case discussed with who accepts admission to observation. Plan of care discussed with patient. He agrees to admission to [facility] for further evaluation and treatment. Leukocytosis observed on initial blood work. Patient has no fevers or nidus of infection. No indication for antibiotics at this time. Discussed with .: Angella Will see patient in: hospital (observation) Counseled pt/family regarding: lab results, diagnosis, rad results - Departure Departure Disposition: Observation Clinical Impression: Asthma exacerbation, Syncope and collapse, Incidental lung nodule, greater than or equal to 8mm, Metabolic acidosis, Leukocytosis Condition: Stable Critical Care Time: No Referrals: TEGAN WILLIS MD [Primary Care Provider] -
[2020-09-12 21:43] LABS: ALBUMIN 4.5 g/dL (3.5-5.0); ALKALINE PHOSPHATASE 59 U/L (38-126); ANION GAP 28.5 MEQ/L (5-15); BLOOD UREA NITROGEN 18 mg/dL (9-20); CHLORIDE 101 mmol/L (98-107); Calcium 9.5 mg/dL (8.4-10.2); Creatinine 1 0.95 mg/dL (0.66-1.25); EST GLOMERULAR FILTRATION RATE > 60.0 ML/MIN; Glucose 175 mg/dL (74-106); MAGNESIUM 2.2 mg/dL (1.6-2.3); SGOT/AST 34 U/L (17-59); SODIUM 138 mmol/L (137-145); Total Protein 7.4 g/dL (6.3-8.2)
[2020-09-12] MEDS ORDERED: Sodium Chloride 0.9% 1000 ML 1,000 ML IV STA (21:45)
[2020-09-12 21:48] LABS: SGPT/ALT 31 U/L (0-50)
[2020-09-12] MEDS ORDERED: Sodium Chloride 0.9% 1000 ML 1,000 ML ONE (21:49)
[2020-09-12 21:54] LABS: Carbon Dioxide 13 mmol/L (22-30)
[2020-09-12 22:10] LABS: A-aADO2 64; ABG HEMOGLOBIN 14.1; ABG POTASSIUM 4.1 (3.5-5.1); ABG SITE RIGHT BRACHIAL; ARTERIAL BLD GAS O2 SATURATION 97.9 % (95-100); ARTERIAL BLOOD GAS BASE EXCESS -2.9 (-2.0-2.0); ARTERIAL BLOOD GAS FIO2 28 %; ARTERIAL BLOOD GAS PCO2 38 mmHg (35-45); ARTERIAL BLOOD GAS PO2 88 mmHg (75-100); ARTERIAL BLOOD GAS pH 7.37 (7.35-7.45); CARBOXYHEMOGLOBIN 2.5 % THgb (0.0-6.9); HGB O2 SAT 94.5 g/dF (94-100); Methhemoglobin 0.9 % (1.4-1.5); paO2 pAO1 0.58
[2020-09-12] MEDS ORDERED: solu-MEDROL 125 MG IV ONE (22:30)
[2020-09-12] MEDS ORDERED: solu-MEDROL 125 MG ONE (22:31)
[2020-09-12] MEDS ORDERED: BRETHINE 1 MG/ML SQ ONE (22:31)
[2020-09-12 23:34] LABS: Lymphocytes 20 % (24-44); Monocyte 5 % (0.0-12.0); Neutrophils 75 % (36.-66.); Platelet Estimate NORMAL (NORMAL); Total Cells Counted 100
[2020-09-12 23:35] LABS: Appearance CLEAR (CLEAR); Bilirubin NEGATIVE (NEGATIVE); Dipstick done @ ? MAIN LAB; Glucose NEGATIVE (NEGATIVE); Ketones NEGATIVE (NEGATIVE); Nitrite NEGATIVE (NEGATIVE); Protein,Urine Dip 30 (Negative); RBC TRACE-LYSED Ery/ul (0-5); Specific Gravity 1.025 (1.005-1.025); Urobilinogen 0.2 mg/dL (0-1)
[2020-09-12 23:37] LABS: Mucus SLIGHT /HPF (NEGATIVE)
[2020-09-12 23:48] LABS: Amphetamine,Urine NEGATIVE (NEGATIVE); Barbiturate,Urine NEGATIVE (NEGATIVE); Benzodiazepine,Urine NEGATIVE (NEGATIVE); Cocaine,Urine NEGATIVE (NEGATIVE); Methadone,Urine NEGATIVE (NEGATIVE); Opiate,Urine NEGATIVE (NEGATIVE); PCP,Urine NEGATIVE (NEGATIVE); THC,Urine POSITIVE (NEGATIVE)
[2020-09-13] MEDS ORDERED: PROVENTIL 2.5 MG/3 ML NEB IH ONE (00:15)
[2020-09-13] MEDS: PROVENTIL 2.5 MG/3 ML NEB IH PRN ×2 (00:21→06:58)
[2020-09-13] MEDS: PROVENTIL 2.5 MG/3 ML NEB IH SCH ×2 (03:42→11:04)
[2020-09-13 04:05] LABS: Hematocrit 40.6 % (42-50); Hemoglobin 13.4 gm/dl (12.5-18.0); Mean Cell Volume 92.7 fl (78-100); Mean Corpuscular Hemoglobin 30.6 pg (26-32); Mean Platelet Volume 9.8 fl (7.5-11.0); Platelet Count 234 K/mm3 (150-450); Red Blood Count 4.38 M/mm3 (4.1-5.6); White Blood Count 13.5 K/mm3 (4.0-10.5)
[2020-09-13 04:18] LABS: ALKALINE PHOSPHATASE 57 U/L (38-126); ANION GAP 15.9 MEQ/L (5-15); BLOOD UREA NITROGEN 15 mg/dL (9-20); CHLORIDE 103 mmol/L (98-107); Calcium 9.3 mg/dL (8.4-10.2); Carbon Dioxide 20 mmol/L (22-30); Creatinine 1 0.72 mg/dL (0.66-1.25); EST GLOMERULAR FILTRATION RATE > 60.0 ML/MIN; Glucose 207 mg/dL (74-106); Potassium 4.1 mmol/L (3.5-5.1); SGOT/AST 27 U/L (17-59); SODIUM 135 mmol/L (137-145); Total Protein 6.7 g/dL (6.3-8.2)
[2020-09-13 04:23] LABS: SGPT/ALT 35 U/L (0-50)
[2020-09-13] MEDS: solu-MEDROL 125 MG IV SCH ×2 (04:52→11:37)
[2020-09-13] MEDS ORDERED: Sodium Chloride 0.9% 1000 ML 1,000 ML IV SCH (05:00)
[2020-09-13] MEDS ORDERED: Advair Hfa 115/21 Common canister IH SCH (07:00)
--- NOTE | 2020-09-13 09:16 | XRAY ---
Indication: Syncope. Multiple contiguous axial images obtained through the head without contrast. Comparison: None Normal appearing brain parenchyma, ventricles, and bony calvarium. Visualized paranasal sinuses and mastoid air cells are clear. Impression: Normal CT head without contrast exam. Comment: Preliminary interpretation was made by [facility]. No critical discrepancy.
--- NOTE | 2020-09-13 09:20 | XRAY ---
Indication: Short of breath. Elevated d-dimer. Multiple contiguous axial images obtained through the chest using 80 cc Isovue 370 contrast and PE protocol. Comparison: None There is adequate opacification of the pulmonary arteries to include the lobar and segmental branches. No pulmonary embolus. Heart is not enlarged. Aorta normal in course and caliber. No pathologic mediastinal/hilar lymphadenopathy. Lungs demonstrates left lower lobe 8mm noncalcified/5 mm calcified and right lower lobe 3 mm noncalcified granulomas. No suspicious pulmonary mass, infiltrate, or effusion. Bony thorax intact with minimal degenerative changes throughout the spine. Limited upper abdomen demonstrates markedly distended stomach with food/fluid. Impression: 1. Negative pulmonary embolus. No acute cardiopulmonary abnormalities. 2. Incidental old granulomatous disease Comment: Preliminary interpretation was made by [facility]. No critical discrepancy.
--- NOTE | 2020-09-13 09:20 | XRAY ---
Indication: Short of breath. Comparison: July 11, 2019. Portable apical lordotic chest less inflated and clear. Heart is not enlarged for AP portable technique. Bony thorax intact. Impression: Continued nonacute chest.
[2020-09-13] MEDS ORDERED: Spiriva 18 Mcg/Cap Inhaler IH SCH (10:00)
--- NOTE | 2020-09-13 11:19 | PCM.HP ---
History of Present Illness - Chief Complaint Chief Complaint: Asthma Exacerbation History of Present Illness: is a 50 year-old male with a history of asthma presents to our ED via EMS unresponsive. Upon initial management patient awoke became alert and described the situation before arrival. Patient states he has a history of asthma. Patient does not have an inhaler. Patient felt his asthma come on rather acutely. Patient was trying to calm himself down. However he apparently syncopized. Patient was found by family member unresponsive. EMS was called. Patient received oxygen and EKG. However upon arrival to our ED patient was assessed. Resuscitation was initiated patient became alert and oriented x3. Patient denies pain. No chest pain. Patient states that he initially felt short of breath but feels well now. No nausea or vomiting. No incontinence. No trauma reported. No neck pain. Symptoms are moderate in intensity. No specific trigger to asthma. - Review of Systems Constitutional: No Fever, No Chills Eyes: No Symptoms Ears, Nose, & Throat: No Symptoms Respiratory: No Cough, No Short Of Breath Cardiac: No Chest Pain, No Edema, No Syncope Abdominal/Gastrointestinal: No Abdominal Pain, No Nausea, No Vomiting, No Diarrhea Genitourinary Symptoms: No Dysuria Musculoskeletal: No Back Pain, No Neck Pain Skin: No Rash Neurological: No Dizziness, No Focal Weakness, No Sensory Changes Psychological: No Symptoms Endocrine: No Symptoms Hematologic/Lymphatic: No Symptoms Immunological/Allergic: No Symptoms Medications & Allergies Home Medications: Home Medication List Albuterol Sulfate [Proair Hfa] 8.5 gm IH QIDPRN PRN 10/03/15 [History Confirmed 09/12/20] Fluticasone/Vilanterol [Breo Ellipta 100-25 Mcg INH] 1 each IH DAILY 10/03/15 [History Confirmed 09/12/20] Tiotropium Sweeny [Spiriva Respimat] 1.25 mcg NEB DAILY 09/12/20 [History Con firmed 09/12/20] Allergies/Adverse Reactions: Allergies Allergy/AdvReac Type Severity Reaction Status Date / Time No Known Drug Allergies Allergy Verified 09/13/20 01:01 - Past Medical History Past Medical History: Yes Neurological History: No Pertinent History ENT History: No Pertinent History Cardiac History: No Pertinent History Respiratory History: Asthma Endocrine Medical History: No Pertinent History Musculoskelatal History: No Pertinent History GI Medical History: No Pertinent History History: No Pertinent History Pyscho-Social History: No Pertinent History Male Reproductive Disorders: No Pertinent History - Past Surgical History Past Surgical History: Yes Neuro Surgical History: No Pertinent History Cardiac History: No Pertinent History Respiratory Surgery: No Pertinent History GI Surgical History: No Pertinent History Genitourinary Surgical Hx: No Pertinent History Musculskeletal Surgical Hx: No Pertinent History Male Surgical History: No Pertinent History Other Surgical History: tonsilectomy - Social History Smoking Status: Former smoker Exposure to second hand smoke: No Alcohol: Rarely Drug Use: marijuana Significant Family History: no pertinent family hx - Physical Exam Vital Signs: Vital Signs - 24 hr Temp Pulse Resp BP Pulse Ox 09/13/20 11:07 93 H 16 98 09/13/20 07:11 98.0 F 82 20 147/67 95 09/13/20 07:05 96 09/13/20 04:00 97.6 F 103 H 18 132/69 96 09/13/20 03:42 84 21 96 09/13/20 00:43 98.0 F 91 H 20 144/81 96 09/13/20 00:21 87 16 95 09/13/20 00:00 85 18 122/78 96 09/12/20 23:48 97 09/12/20 23:00 94 H 19 124/72 98 09/12/20 22:00 91 H 19 120/70 98 09/12/20 21:27 97 09/12/20 21:18 97.4 F 120 H 28 H 180/93 97 09/12/20 21:17 142 H 26 H 98 General Appearance: no apparent distress, alert Neurologic Exam: alert, oriented x 3, cooperative, normal mood/affect, nml cerebellar function, nml station & gait, sensation nml, No motor deficits Eye Exam: PERRL/EOMI, eyes nml inspection Ears, Nose, Throat Exam: normal ENT inspection, TMs normal, pharynx normal, moist mucous membranes Neck Exam: normal inspection, non-tender, supple, full range of motion Respiratory Exam: normal breath sounds, lungs clear, No respiratory distress Cardiovascular Exam: regular rate/rhythm, normal heart sounds, normal peripheral pulses Gastrointestinal/Abdomen Exam: soft, normal bowel sounds, No tenderness, No mass Back Exam: normal inspection, normal range of motion, No CVA tenderness, No vertebral tenderness Extremity Exam: normal inspection, normal range of motion, pelvis stable Skin Exam: normal color, warm, dry, No rash Lymphatic Exam: No adenopathy Results - Labs Lab/Micro Results: Lab Results-Last 24 Hours 09/12/20 09/12/20 09/12/20 Range/Units 21:15 21:25 21:25 WBC 18.1 H (4.0-10.5) K/mm3 RBC 4.70 (4.1-5.6) M/mm3 Hgb 14.5 (12.5-18.0) gm/dl Hct 45.1 (42-50) % MCV 96.0 (78-100) fl MCH 30.9 (26-32) pg MCHC 32.2 (32-36) g/dl RDW 13.2 (11.5-14.0) % Plt Count 332 (150-450) K/mm3 MPV 10.6 (7.5-11.0) fl Segmented Neutrophils 75 H (36.-66.) % Lymphocytes (Manual) 20 L (24-44) % Monocytes (Manual) 5 (0.0-12.0) % Platelet Estimate NORMAL (NORMAL) RBC Morphology NORMAL D-Dimer (215-500) ng/mL Puncture Site lr pCO2 39 (35-45) mmHg pO2 131 H* (75-100) mmHg Base Excess -15.5 L (-2.0-2.0) O2 Saturation 97.3 (94-100) g/dF ABG pH 7.13 L* (7.35-7.45) ABG HCO3 13.0 L* (22-28) ABG O2 Sat (Measured) 99.4 (95-100) % Ludwig Test y A-a Gradient 533 a/A Ratio 0.20 Hemoglobin 14.7 Carboxyhemoglobin 1.3 (0.0-6.9) % THgb Methemoglobin 0.7 L (1.4-1.5) % Potassium 4.3 4.0 (3.5-5.1) Temperature 37.0 C POC O2 Flow Rate 100 % Sodium 138 (137-145) mmol/L Chloride 101 (98-107) mmol/L Carbon Dioxide 13 L* (22-30) mmol/L Anion Gap 28.5 H (5-15) MEQ/L BUN 18 (9-20) mg/dL Creatinine 0.95 (0.66-1.25) mg/dL Estimated GFR > 60.0 ML/MIN Glucose 175 H (74-106) mg/dL Lactic Acid 12.4 H (0.4-2.0) Calcium 9.5 (8.4-10.2) mg/dL Magnesium 2.2 (1.6-2.3) mg/dL Total Bilirubin 0.30 (0.2-1.3) mg/dL AST 34 (17-59) U/L ALT 31 (0-50) U/L Alkaline Phosphatase 59 (38-126) U/L Troponin I (0.000-0.034) ng/mL Serum Total Protein 7.4 (6.3-8.2) g/dL Albumin 4.5 (3.5-5.0) g/dL Urinalys Dipstick Clnc Urine Color (YELLOW) Urine Appearance (CLEAR) Urine pH (5-6) Ur Specific [place] (1.005-1.025) POC Urine Protein Conf (Negative) Urine Ketones (NEGATIVE) Urine Nitrite (NEGATIVE) Urine Bilirubin (NEGATIVE) Urine Urobilinogen (0-1) mg/dL Urine Leukocytes (NEGATIVE) Urine WBC (Auto) (0-5) /HPF Urine RBC (Auto) (0-2) /HPF U Hyaline Cast (Auto) (0-2) /LPF U Epithel Cells (Auto) (FEW) /HPF Urine Bacteria (Auto) (NEGATIVE) /HPF Urine RBC (0-5) Jerrell/ul Urine Mucus (Auto) (NEGATIVE) /HPF Ur Culture Indicated? Urine Glucose (NEGATIVE) mg/dL Urine Opiates Level (NEGATIVE) Ur Methadone (NEGATIVE) Urine Barbiturates (NEGATIVE) Ur Phencyclidine (PCP) (NEGATIVE) Urine Amphetamine (NEGATIVE) U Benzodiazepine Level (NEGATIVE) Urine Cocaine (NEGATIVE) Urine Marijuana (THC) (NEGATIVE) SARS-CoV-2 (PCR) (NEGATIVE) 09/12/20 09/12/20 09/12/20 Range/Units 21:25 21:25 21:31 WBC (4.0-10.5) K/mm3 RBC (4.1-5.6) M/mm3 Hgb (12.5-18.0) gm/dl Hct (42-50) % MCV (78-100) fl MCH (26-32) pg MCHC (32-36) g/dl RDW (11.5-14.0) % Plt Count (150-450) K/mm3 MPV (7.5-11.0) fl Segmented Neutrophils (36.-66.) % Lymphocytes (Manual) (24-44) % Monocytes (Manual) (0.0-12.0) % Platelet Estimate (NORMAL) RBC Morphology D-Dimer 587 H* (215-500) ng/mL Puncture Site pCO2 (35-45) mmHg pO2 (75-100) mmHg Base Excess (-2.0-2.0) O2 Saturation (94-100) g/dF ABG pH (7.35-7.45) ABG HCO3 (22-28) ABG O2 Sat (Measured) (95-100) % Ludwig Test A-a Gradient a/A Ratio Hemoglobin Carboxyhemoglobin (0.0-6.9) % THgb Methemoglobin (1.4-1.5) % Potassium (3.5-5.1) Temperature C POC O2 Flow Rate % Sodium (137-145) mmol/L Chloride (98-107) mmol/L Carbon Dioxide (22-30) mmol/L Anion Gap (5-15) MEQ/L BUN (9-20) mg/dL Creatinine (0.66-1.25) mg/dL Estimated GFR ML/MIN Glucose (74-106) mg/dL Lactic Acid (0.4-2.0) Calcium (8.4-10.2) mg/dL Magnesium (1.6-2.3) mg/dL Total Bilirubin (0.2-1.3) mg/dL AST (17-59) U/L ALT (0-50) U/L Alkaline Phosphatase (38-126) U/L Troponin I < 0.012 (0.000-0.034) ng/mL Serum Total Protein (6.3-8.2) g/dL Albumin (3.5-5.0) g/dL Urinalys Dipstick Clnc Urine Color (YELLOW) Urine Appearance (CLEAR) Urine pH (5-6) Ur Specific [place] (1.005-1.025) POC Urine Protein Conf (Negative) Urine Ketones (NEGATIVE) Urine Nitrite (NEGATIVE) Urine Bilirubin (NEGATIVE) Urine Urobilinogen (0-1) mg/dL Urine Leukocytes (NEGATIVE) Urine WBC (Auto) (0-5) /HPF Urine RBC (Auto) (0-2) /HPF U Hyaline Cast (Auto) (0-2) /LPF U Epithel Cells (Auto) (FEW) /HPF Urine Bacteria (Auto) (NEGATIVE) /HPF Urine RBC (0-5) Jerrell/ul Urine Mucus (Auto) (NEGATIVE) /HPF Ur Culture Indicated? Urine Glucose (NEGATIVE) mg/dL Urine Opiates Level (NEGATIVE) Ur Methadone (NEGATIVE) Urine Barbiturates (NEGATIVE) Ur Phencyclidine (PCP) (NEGATIVE) Urine Amphetamine (NEGATIVE) U Benzodiazepine Level (NEGATIVE) Urine Cocaine (NEGATIVE) Urine Marijuana (THC) (NEGATIVE) SARS-CoV-2 (PCR) NEGATIVE (NEGATIVE) 09/12/20 09/12/20 09/12/20 Range/Units 21:59 23:17 23:17 WBC (4.0-10.5) K/mm3 RBC (4.1-5.6) M/mm3 Hgb (12.5-18.0) gm/dl Hct (42-50) % MCV (78-100) fl MCH (26-32) pg MCHC (32-36) g/dl RDW (11.5-14.0) % Plt Count (150-450) K/mm3 MPV (7.5-11.0) fl Segmented Neutrophils (36.-66.) % Lymphocytes (Manual) (24-44) % Monocytes (Manual) (0.0-12.0) % Platelet Estimate (NORMAL) RBC Morphology D-Dimer (215-500) ng/mL Puncture Site RIGHT BRACHIAL pCO2 38 (35-45) mmHg pO2 88 (75-100) mmHg Base Excess -2.9 L (-2.0-2.0) O2 Saturation 94.5 (94-100) g/dF ABG pH 7.37 (7.35-7.45) ABG HCO3 22.0 (22-28) ABG O2 Sat (Measured) 97.9 (95-100) % Ludwig Test NOT APPLICABLE A-a Gradient 64 a/A Ratio 0.58 Hemoglobin 14.1 Carboxyhemoglobin 2.5 (0.0-6.9) % THgb Methemoglobin 0.9 L (1.4-1.5) % Potassium 4.1 (3.5-5.1) Temperature 37.0 C POC O2 Flow Rate 28 % Sodium (137-145) mmol/L Chloride (98-107) mmol/L Carbon Dioxide (22-30) mmol/L Anion Gap (5-15) MEQ/L BUN (9-20) mg/dL Creatinine (0.66-1.25) mg/dL Estimated GFR ML/MIN Glucose (74-106) mg/dL Lactic Acid (0.4-2.0) Calcium (8.4-10.2) mg/dL Magnesium (1.6-2.3) mg/dL Total Bilirubin (0.2-1.3) mg/dL AST (17-59) U/L ALT (0-50) U/L Alkaline Phosphatase (38-126) U/L Troponin I (0.000-0.034) ng/mL Serum Total Protein (6.3-8.2) g/dL Albumin (3.5-5.0) g/dL Urinalys Dipstick Clnc MAIN LAB Urine Color YELLOW (YELLOW) Urine Appearance CLEAR (CLEAR) Urine pH 5.5 (5-6) Ur Specific [place] 1.025 (1.005-1.025) POC Urine Protein Conf 30 (Negative) Urine Ketones NEGATIVE (NEGATIVE) Urine Nitrite NEGATIVE (NEGATIVE) Urine Bilirubin NEGATIVE (NEGATIVE) Urine Urobilinogen 0.2 (0-1) mg/dL Urine Leukocytes NEGATIVE (NEGATIVE) Urine WBC (Auto) NONE (0-5) /HPF Urine RBC (Auto) NONE (0-2) /HPF U Hyaline Cast (Auto) 6-10 (0-2) /LPF U Epithel Cells (Auto) NONE (FEW) /HPF Urine Bacteria (Auto) NONE (NEGATIVE) /HPF Urine RBC TRACE-LYSED (0-5) Jerrell/ul Urine Mucus (Auto) SLIGHT (NEGATIVE) /HPF Ur Culture Indicated? YES Urine Glucose NEGATIVE (NEGATIVE) mg/dL Urine Opiates Level NEGATIVE (NEGATIVE) Ur Methadone NEGATIVE (NEGATIVE) Urine Barbiturates NEGATIVE (NEGATIVE) Ur Phencyclidine (PCP) NEGATIVE (NEGATIVE) Urine Amphetamine NEGATIVE (NEGATIVE) U Benzodiazepine Level NEGATIVE (NEGATIVE) Urine Cocaine NEGATIVE (NEGATIVE) Urine Marijuana (THC) POSITIVE (NEGATIVE) SARS-CoV-2 (PCR) (NEGATIVE) 09/13/20 09/13/20 09/13/20 Range/Units 00:20 00:23 04:00 WBC (4.0-10.5) K/mm3 RBC (4.1-5.6) M/mm3 Hgb (12.5-18.0) gm/dl Hct (42-50) % MCV (78-100) fl MCH (26-32) pg MCHC (32-36) g/dl RDW (11.5-14.0) % Plt Count (150-450) K/mm3 MPV (7.5-11.0) fl Segmented Neutrophils (36.-66.) % Lymphocytes (Manual) (24-44) % Monocytes (Manual) (0.0-12.0) % Platelet Estimate (NORMAL) RBC Morphology D-Dimer (215-500) ng/mL Puncture Site pCO2 (35-45) mmHg pO2 (75-100) mmHg Base Excess (-2.0-2.0) O2 Saturation (94-100) g/dF ABG pH (7.35-7.45) ABG HCO3 (22-28) ABG O2 Sat (Measured) (95-100) % Ludwig Test A-a Gradient a/A Ratio Hemoglobin Carboxyhemoglobin (0.0-6.9) % THgb Methemoglobin (1.4-1.5) % Potassium (3.5-5.1) Temperature C POC O2 Flow Rate % Sodium (137-145) mmol/L Chloride (98-107) mmol/L Carbon Dioxide (22-30) mmol/L Anion Gap (5-15) MEQ/L BUN (9-20) mg/dL Creatinine (0.66-1.25) mg/dL Estimated GFR ML/MIN Glucose (74-106) mg/dL Lactic Acid 3.3 H 3.8 H (0.4-2.0) Calcium (8.4-10.2) mg/dL Magnesium (1.6-2.3) mg/dL Total Bilirubin (0.2-1.3) mg/dL AST (17-59) U/L ALT (0-50) U/L Alkaline Phosphatase (38-126) U/L Troponin I 0.217 H* (0.000-0.034) ng/mL Serum Total Protein (6.3-8.2) g/dL Albumin (3.5-5.0) g/dL Urinalys Dipstick Clnc Urine Color (YELLOW) Urine Appearance (CLEAR) Urine pH (5-6) Ur Specific [place] (1.005-1.025) POC Urine Protein Conf (Negative) Urine Ketones (NEGATIVE) Urine Nitrite (NEGATIVE) Urine Bilirubin (NEGATIVE) Urine Urobilinogen (0-1) mg/dL Urine Leukocytes (NEGATIVE) Urine WBC (Auto) (0-5) /HPF Urine RBC (Auto) (0-2) /HPF U Hyaline Cast (Auto) (0-2) /LPF U Epithel Cells (Auto) (FEW) /HPF Urine Bacteria (Auto) (NEGATIVE) /HPF Urine RBC (0-5) Jerrell/ul Urine Mucus (Auto) (NEGATIVE) /HPF Ur Culture Indicated? Urine Glucose (NEGATIVE) mg/dL Urine Opiates Level (NEGATIVE) Ur Methadone (NEGATIVE) Urine Barbiturates (NEGATIVE) Ur Phencyclidine (PCP) (NEGATIVE) Urine Amphetamine (NEGATIVE) U Benzodiazepine Level (NEGATIVE) Urine Cocaine (NEGATIVE) Urine Marijuana (THC) (NEGATIVE) SARS-CoV-2 (PCR) (NEGATIVE) 09/13/20 09/13/20 09/13/20 Range/Units 04:03 04:03 04:03 WBC 13.5 H (4.0-10.5) K/mm3 RBC 4.38 (4.1-5.6) M/mm3 Hgb 13.4 (12.5-18.0) gm/dl Hct 40.6 L (42-50) % MCV 92.7 (78-100) fl MCH 30.6 (26-32) pg MCHC 33.0 (32-36) g/dl RDW 13.0 (11.5-14.0) % Plt Count 234 (150-450) K/mm3 MPV 9.8 (7.5-11.0) fl Segmented Neutrophils (36.-66.) % Lymphocytes (Manual) (24-44) % Monocytes (Manual) (0.0-12.0) % Platelet Estimate (NORMAL) RBC Morphology D-Dimer (215-500) ng/mL Puncture Site pCO2 (35-45) mmHg pO2 (75-100) mmHg Base Excess (-2.0-2.0) O2 Saturation (94-100) g/dF ABG pH (7.35-7.45) ABG HCO3 (22-28) ABG O2 Sat (Measured) (95-100) % Ludwig Test A-a Gradient a/A Ratio Hemoglobin Carboxyhemoglobin (0.0-6.9) % THgb Methemoglobin (1.4-1.5) % Potassium 4.1 (3.5-5.1) Temperature C POC O2 Flow Rate % Sodium 135 L (137-145) mmol/L Chloride 103 (98-107) mmol/L Carbon Dioxide 20 L (22-30) mmol/L Anion Gap 15.9 H (5-15) MEQ/L BUN 15 (9-20) mg/dL Creatinine 0.72 (0.66-1.25) mg/dL Estimated GFR > 60.0 ML/MIN Glucose 207 H (74-106) mg/dL Lactic Acid (0.4-2.0) Calcium 9.3 (8.4-10.2) mg/dL Magnesium (1.6-2.3) mg/dL Total Bilirubin 0.20 (0.2-1.3) mg/dL AST 27 (17-59) U/L ALT 35 (0-50) U/L Alkaline Phosphatase 57 (38-126) U/L Troponin I 0.227 H* (0.000-0.034) ng/mL Serum Total Protein 6.7 (6.3-8.2) g/dL Albumin 4.0 (3.5-5.0) g/dL Urinalys Dipstick Clnc Urine Color (YELLOW) Urine Appearance (CLEAR) Urine pH (5-6) Ur Specific [place] (1.005-1.025) POC Urine Protein Conf (Negative) Urine Ketones (NEGATIVE) Urine Nitrite (NEGATIVE) Urine Bilirubin (NEGATIVE) Urine Urobilinogen (0-1) mg/dL Urine Leukocytes (NEGATIVE) Urine WBC (Auto) (0-5) /HPF Urine RBC (Auto) (0-2) /HPF U Hyaline Cast (Auto) (0-2) /LPF U Epithel Cells (Auto) (FEW) /HPF Urine Bacteria (Auto) (NEGATIVE) /HPF Urine RBC (0-5) Jerrell/ul Urine Mucus (Auto) (NEGATIVE) /HPF Ur Culture Indicated? Urine Glucose (NEGATIVE) mg/dL Urine Opiates Level (NEGATIVE) Ur Methadone (NEGATIVE) Urine Barbiturates (NEGATIVE) Ur Phencyclidine (PCP) (NEGATIVE) Urine Amphetamine (NEGATIVE) U Benzodiazepine Level (NEGATIVE) Urine Cocaine (NEGATIVE) Urine Marijuana (THC) (NEGATIVE) SARS-CoV-2 (PCR) (NEGATIVE) - Radiology Impressions Radiology Exams & Impressions: Radiology Procedures Category Date Time Status CHEST 1 VIEW (PORTABLE) Stat Exams 09/12/20 21:28 Completed CHEST WITH CONTRAST [CT] Stat Exams 09/12/20 21:54 Completed HEAD WITHOUT CONTRAST [CT] Stat Exams 09/12/20 21:54 Completed - Other Procedures and Tests Respiratory Therapy 09/13/20 00:35 Respiratory Therapy Assessment DAILY Assessment/Plan (1) Asthma exacerbation Current Visit: Yes Status: Acute Qualifiers: Asthma severity: severe Asthma persistence: unspecified Qualified Code(s): J45.901 - Unspecified asthma with (acute) exacerbation Assessment & Plan: Last Vital Signs Temp 98.0 F 09/13/20 07:11 Pulse 93 H 09/13/20 11:07 Resp 16 09/13/20 11:07 BP 147/67 09/13/20 07:11 Pulse Ox 98 09/13/20 11:07 Allergies No Known Drug Allergies Allergy (Verified 09/13/20 01:01) Active Medications Albuterol Sulfate (Proventil 2.5 Mg/3 Ml Neb) 2.5 mg IH QIDRT [facility] Stop: 10/13/20 06:59 Last Admin: 09/13/20 11:04 Dose: 2.5 mg Documented by: Albuterol Sulfate (Proventil 2.5 Mg/3 Ml Neb) 2.5 mg IH Q4H PRN PRN PRN Reason: SHORTNESS OF BREATH/WHEEZING Stop: 10/13/20 00:19 Last Admin: 09/13/20 06:58 Dose: 2.5 mg Documented by: Sodium Chloride (Sodium Chloride 0.9% 1000 Ml) 1,000 mls @ 100 mls/hr IV .Q10H [facility] Stop: 10/13/20 04:59 Last Admin: 09/13/20 04:52 Dose: 100 mls/hr Documented by: Methylprednisolone Sodium Succinate (Solu-Medrol 125 Mg) 125 mg IV Q6H [facility] Stop: 10/13/20 04:59 Last Admin: 09/13/20 04:52 Dose: 125 mg Documented by: Fluticasone/Salmeterol (Advair Hfa 115/21 Common Canister*) 2 puff IH BIDRT [facility] Stop: 10/13/20 06:59 Last Admin: 09/13/20 07:01 Dose: 2 puff Documented by: Tiotropium Sweeny (Spiriva 18 Mcg/Cap Inhaler) 1 ea IH DAILY [facility] Stop: 10/13/20 09:59 Last Admin: 09/13/20 07:02 Dose: 1 ea Documented by: Intake & Output 09/12/20 09/13/20 11:59 11:59 Intake Total 720 Balance 720 Weight 103.6 kg Orders 09/13/20 00:20 Albuterol 2.5 mg/3 ml Neb [Proventil 2.5 mg/3 ml Neb] 2.5 mg IH Q4H PRN PRN 09/13/20 00:28 Graining Operator/Discharge Plan ROUTINE 09/13/20 00:35 Respiratory Therapy Assessment DAILY 09/13/20 05:00 Methylprednis Sod Succ 125 mg* [solu-MEDROL 125 MG] 125 mg IV Q6H NaCl 0.9% 1000 ml [Sodium Chloride 0.9% 1000 ML] 1,000 ml IV 100 mls/hr 09/13/20 07:00 Albuterol 2.5 mg/3 ml Neb [Proventil 2.5 mg/3 ml Neb] 2.5 mg IH QIDRT Fluticasone/Salmeterol 115/21 [Advair Hfa 115/21 Common canister*] 2 puff IH BIDRT 09/13/20 10:00 Tiotropium Sweeny Inhaler [Spiriva 18 Mcg/Cap Inhaler] 1 ea IH DAILY 09/13/20 10:46 Tele-Health Consult ROUTINE Lab Tests 09/12/20 09/12/20 09/12/20 21:15 21:25 21:25 WBC 18.1 H RBC 4.70 Hgb 14.5 Hct 45.1 MCV 96.0 MCH 30.9 MCHC 32.2 RDW 13.2 Plt Count 332 MPV 10.6 Segmented Neutrophils 75 H Lymphocytes (Manual) 20 L Monocytes (Manual) 5 Platelet Estimate NORMAL RBC Morphology NORMAL D-Dimer Puncture Site lr pCO2 39 pO2 131 H* Base Excess -15.5 L O2 Saturation 97.3 ABG pH 7.13 L* ABG HCO3 13.0 L* ABG O2 Sat (Measured) 99.4 Ludwig Test y A-a Gradient 533 a/A Ratio 0.20 Hemoglobin 14.7 Carboxyhemoglobin 1.3 Methemoglobin 0.7 L Potassium 4.3 4.0 Temperature 37.0 POC O2 Flow Rate 100 Sodium 138 Chloride 101 Carbon Dioxide 13 L* Anion Gap 28.5 H BUN 18 Creatinine 0.95 Estimated GFR > 60.0 Glucose 175 H Lactic Acid 12.4 H Calcium 9.5 Magnesium 2.2 Total Bilirubin 0.30 AST 34 ALT 31 Alkaline Phosphatase 59 Troponin I Serum Total Protein 7.4 Albumin 4.5 Urinalys Dipstick Clnc Urine Color Urine Appearance Urine pH Ur Specific [place] POC Urine Protein Conf Urine Ketones Urine Nitrite Urine Bilirubin Urine Urobilinogen Urine Leukocytes Urine WBC (Auto) Urine RBC (Auto) U Hyaline Cast (Auto) U Epithel Cells (Auto) Urine Bacteria (Auto) Urine RBC Urine Mucus (Auto) Ur Culture Indicated? Urine Glucose Urine Opiates Level Ur Methadone Urine Barbiturates Ur Phencyclidine (PCP) Urine Amphetamine U Benzodiazepine Level Urine Cocaine Urine Marijuana (THC) SARS-CoV-2 (PCR) 09/12/20 09/12/20 09/12/20 21:25 21:25 21:31 WBC RBC Hgb Hct MCV MCH MCHC RDW Plt Count MPV Segmented Neutrophils Lymphocytes (Manual) Monocytes (Manual) Platelet Estimate RBC Morphology D-Dimer 587 H* Puncture Site pCO2 pO2 Base Excess O2 Saturation ABG pH ABG HCO3 ABG O2 Sat (Measured) Ludwig Test A-a Gradient a/A Ratio Hemoglobin Carboxyhemoglobin Methemoglobin Potassium Temperature POC O2 Flow Rate Sodium Chloride Carbon Dioxide Anion Gap BUN Creatinine Estimated GFR Glucose Lactic Acid Calcium Magnesium Total Bilirubin AST ALT Alkaline Phosphatase Troponin I < 0.012 Serum Total Protein Albumin Urinalys Dipstick Clnc Urine Color Urine Appearance Urine pH Ur Specific [place] POC Urine Protein Conf Urine Ketones Urine Nitrite Urine Bilirubin Urine Urobilinogen Urine Leukocytes Urine WBC (Auto) Urine RBC (Auto) U Hyaline Cast (Auto) U Epithel Cells (Auto) Urine Bacteria (Auto) Urine RBC Urine Mucus (Auto) Ur Culture Indicated? Urine Glucose Urine Opiates Level Ur Methadone Urine Barbiturates Ur Phencyclidine (PCP) Urine Amphetamine U Benzodiazepine Level Urine Cocaine Urine Marijuana (THC) SARS-CoV-2 (PCR) NEGATIVE 09/12/20 09/12/20 09/12/20 21:59 23:17 23:17 WBC RBC Hgb Hct MCV MCH MCHC RDW Plt Count MPV Segmented Neutrophils Lymphocytes (Manual) Monocytes (Manual) Platelet Estimate RBC Morphology D-Dimer Puncture Site RIGHT BRACHIAL pCO2 38 pO2 88 Base Excess -2.9 L O2 Saturation 94.5 ABG pH 7.37 ABG HCO3 22.0 ABG O2 Sat (Measured) 97.9 Ludwig Test NOT APPLICABLE A-a Gradient 64 a/A Ratio 0.58 Hemoglobin 14.1 Carboxyhemoglobin 2.5 Methemoglobin 0.9 L Potassium 4.1 Temperature 37.0 POC O2 Flow Rate 28 Sodium Chloride Carbon Dioxide Anion Gap BUN Creatinine Estimated GFR Glucose Lactic Acid Calcium Magnesium Total Bilirubin AST ALT Alkaline Phosphatase Troponin I Serum Total Protein Albumin Urinalys Dipstick Clnc MAIN LAB Urine Color YELLOW Urine Appearance CLEAR Urine pH 5.5 Ur Specific [place] 1.025 POC Urine Protein Conf 30 Urine Ketones NEGATIVE Urine Nitrite NEGATIVE Urine Bilirubin NEGATIVE Urine Urobilinogen 0.2 Urine Leukocytes NEGATIVE Urine WBC (Auto) NONE Urine RBC (Auto) NONE U Hyaline Cast (Auto) 6-10 U Epithel Cells (Auto) NONE Urine Bacteria (Auto) NONE Urine RBC TRACE-LYSED Urine Mucus (Auto) SLIGHT Ur Culture Indicated? YES Urine Glucose NEGATIVE Urine Opiates Level NEGATIVE Ur Methadone NEGATIVE Urine Barbiturates NEGATIVE Ur Phencyclidine (PCP) NEGATIVE Urine Amphetamine NEGATIVE U Benzodiazepine Level NEGATIVE Urine Cocaine NEGATIVE Urine Marijuana (THC) POSITIVE SARS-CoV-2 (PCR) 09/13/20 09/13/20 09/13/20 00:20 00:23 04:00 WBC RBC Hgb Hct MCV MCH MCHC RDW Plt Count MPV Segmented Neutrophils Lymphocytes (Manual) Monocytes (Manual) Platelet Estimate RBC Morphology D-Dimer Puncture Site pCO2 pO2 Base Excess O2 Saturation ABG pH ABG HCO3 ABG O2 Sat (Measured) Ludwig Test A-a Gradient a/A Ratio Hemoglobin Carboxyhemoglobin Methemoglobin Potassium Temperature POC O2 Flow Rate Sodium Chloride Carbon Dioxide Anion Gap BUN Creatinine Estimated GFR Glucose Lactic Acid 3.3 H 3.8 H Calcium Magnesium Total Bilirubin AST ALT Alkaline Phosphatase Troponin I 0.217 H* Serum Total Protein Albumin Urinalys Dipstick Clnc Urine Color Urine Appearance Urine pH Ur Specific [place] POC Urine Protein Conf Urine Ketones Urine Nitrite Urine Bilirubin Urine Urobilinogen Urine Leukocytes Urine WBC (Auto) Urine RBC (Auto) U Hyaline Cast (Auto) U Epithel Cells (Auto) Urine Bacteria (Auto) Urine RBC Urine Mucus (Auto) Ur Culture Indicated? Urine Glucose Urine Opiates Level Ur Methadone Urine Barbiturates Ur Phencyclidine (PCP) Urine Amphetamine U Benzodiazepine Level Urine Cocaine Urine Marijuana (THC) SARS-CoV-2 (PCR) 09/13/20 09/13/20 09/13/20 04:03 04:03 04:03 WBC 13.5 H RBC 4.38 Hgb 13.4 Hct 40.6 L MCV 92.7 MCH 30.6 MCHC 33.0 RDW 13.0 Plt Count 234 MPV 9.8 Segmented Neutrophils Lymphocytes (Manual) Monocytes (Manual) Platelet Estimate RBC Morphology D-Dimer Puncture Site pCO2 pO2 Base Excess O2 Saturation ABG pH ABG HCO3 ABG O2 Sat (Measured) Ludwig Test A-a Gradient a/A Ratio Hemoglobin Carboxyhemoglobin Methemoglobin Potassium 4.1 Temperature POC O2 Flow Rate Sodium 135 L Chloride 103 Carbon Dioxide 20 L Anion Gap 15.9 H BUN 15 Creatinine 0.72 Estimated GFR > 60.0 Glucose 207 H Lactic Acid Calcium 9.3 Magnesium Total Bilirubin 0.20 AST 27 ALT 35 Alkaline Phosphatase 57 Troponin I 0.227 H* Serum Total Protein 6.7 Albumin 4.0 Urinalys Dipstick Clnc Urine Color Urine Appearance Urine pH Ur Specific [place] POC Urine Protein Conf Urine Ketones Urine Nitrite Urine Bilirubin Urine Urobilinogen Urine Leukocytes Urine WBC (Auto) Urine RBC (Auto) U Hyaline Cast (Auto) U Epithel Cells (Auto) Urine Bacteria (Auto) Urine RBC Urine Mucus (Auto) Ur Culture Indicated? Urine Glucose Urine Opiates Level Ur Methadone Urine Barbiturates Ur Phencyclidine (PCP) Urine Amphetamine U Benzodiazepine Level Urine Cocaine Urine Marijuana (THC) SARS-CoV-2 (PCR) Code(s): J45.901 - UNSPECIFIED ASTHMA WITH (ACUTE) EXACERBATION (2) Acute respiratory acidosis Current Visit: Yes Status: Acute Code(s): E87.2 - ACIDOSIS (3) Elevated troponin Current Visit: Yes Status: Acute Code(s): R77.8 - OTHER SPECIFIED ABNORMALITIES OF PLASMA PROTEINS (4) Leukocytosis Current Visit: Yes Status: Acute Code(s): D72.829 - ELEVATED WHITE BLOOD CELL COUNT, UNSPECIFIED
[2020-09-13 12:04] VITALS: BP 142/73; PULSE 89; O2SAT 95
--- NOTE | 2020-09-14 08:00 | PCM.DS ---
Discharge Summary Date of Admission: 09/13/20 00:14 Admitting Physician: DARIANA NEWTON Consults: Consults on Case 09/13/20 10:46 Tele-Health Consult ROUTINE Primary Care Provider: TEGAN WILLIS MD Allergies Allergies No Known Drug Allergies Allergy (Verified 09/13/20 01:01) Hospital Summary - Hospital Course Hospital Course: Chief Complaint Diagnosis Asthma Exacerbation Allergies Allergy/AdvReac Type Severity Reaction Status Date / Time No Known Drug Allergies Allergy Verified 09/13/20 01:01 Vital Signs (Last 24 hours) Temp Pulse Resp BP Pulse Ox 09/13/20 12:00 98.3 F 89 18 142/73 95 09/13/20 11:07 93 H 16 98 Home Medications Medication Instructions Recorded Confirmed Last Taken Type Tiotropium [place] [Spiriva 1.25 mcg NEB DAILY 09/12/20 09/12/20 09/12/20 History Respimat] Albuterol Sulfate [Proair Hfa] 2 puff IH QIDPRN PRN #1 hfa.aer.ad 09/13/20 Unknown Rx Azithromycin [Zithromax Tri-Miah] 500 mg PO DAILY #1 tablet 09/13/20 Unknown Rx Methylprednisolone Packet 0 mg PO UD #1 packet 09/13/20 Unknown Rx [Medrol Dosepack] Current Medications Discontinued Medications Generic Name Dose Route Start Last Admin Trade Name Freq PRN Reason Stop Dose Admin Albuterol Sulfate 2.5 mg 09/13/20 07:00 09/13/20 11:04 Proventil 2.5 Mg/3 Ml Neb IH 10/13/20 06:59 2.5 mg QIDRT BRIANDA Administration Albuterol Sulfate 2.5 mg 09/13/20 00:20 09/13/20 06:58 Proventil 2.5 Mg/3 Ml Neb IH 10/13/20 00:19 2.5 mg Q4H PRN PRN Administration SHORTNESS OF BREATH/WHEEZING Albuterol Sulfate Confirm 09/13/20 00:15 Proventil 2.5 Mg/3 Ml Neb Administered 09/13/20 00:16 Dose 2.5 mg IH .STK-MED ONE Albuterol/Ipratropium 3 ml 09/12/20 21:13 09/12/20 21:17 Duoneb 0.5-3 Mg/3 Ml Neb IH 09/12/20 21:14 3 ml STAT ONE Administration Albuterol/Ipratropium Confirm 09/12/20 21:12 Duoneb 0.5-3 Mg/3 Ml Neb Administered 09/12/20 21:13 Dose 3 ml IH .STK-MED ONE Sodium Chloride 1,000 mls @ 999 mls/hr 09/12/20 21:45 09/12/20 21:52 Sodium Chloride 0.9% 1000 Ml IV 09/12/20 22:45 999 mls/hr .Q1H1M STA Administration Sodium Chloride Confirm 09/12/20 21:49 Sodium Chloride 0.9% 1000 Ml Administered 09/12/20 21:50 Dose 1,000 mls @ ud .ROUTE .STK-MED ONE Sodium Chloride 1,000 mls @ 100 mls/hr 09/13/20 05:00 09/13/20 04:52 Sodium Chloride 0.9% 1000 Ml IV 10/13/20 04:59 100 mls/hr .Q10H BRIANDA Administration Methylprednisolone Sodium Succinate 125 mg 09/12/20 22:30 09/12/20 22:41 Solu-Medrol 125 Mg IV 09/12/20 22:31 125 mg STAT ONE Administration Methylprednisolone Sodium Succinate Confirm 09/12/20 22:31 Solu-Medrol 125 Mg Administered 09/12/20 22:32 Dose 125 mg .ROUTE .STK-MED ONE Methylprednisolone Sodium Succinate 125 mg 09/13/20 05:00 09/13/20 11:37 Solu-Medrol 125 Mg IV 10/13/20 04:59 125 mg Q6H BRIANDA Administration Fluticasone/Salmeterol 2 puff 09/13/20 07:00 09/13/20 07:01 Advair Hfa 115/21 Common Canister* IH 10/13/20 06:59 2 puff BIDRT BRIANDA Administration Terbutaline Sulfate 1 mg 09/12/20 22:31 Brethine 1 Mg/Ml SQ 09/12/20 22:32 .STK-MED ONE Tiotropium [place] 1 ea 09/13/20 10:00 09/13/20 07:02 Spiriva 18 Mcg/Cap Inhaler IH 10/13/20 09:59 1 ea DAILY BRIANDA Administration Intake & Output (Last 24 hours) 09/11/20 09/12/20 09/13/20 09/14/20 11:59 11:59 11:59 11:59 Intake Total 720 240 Balance 720 240 Weight 103.6 kg Microbiology Results (Last 24 hours) 09/12/20 23:17 Clean Catch Midstream Urine Culture - Final NO GROWTH 09/12/20 22:08 Blood Blood Culture Gram Stain - Pending 09/12/20 22:08 Blood Blood Culture - Preliminary NO GROWTH TO DATE 09/12/20 21:55 Blood Blood Culture Gram Stain - Pending 09/12/20 21:55 Blood Blood Culture - Preliminary NO GROWTH TO DATE Orders (Last 24 hours) Category Date Time Status Tele-Health Consult ROUTINE Cons 09/13/20 10:46 Active Heart-Healthy Diet Diet 09/13/20 Breakfast Completed Albuterol 2.5 mg/3 ml Neb [Proventil 2.5 mg/3 ml Neb Med 09/13/20 07:00 Discontinued ] 2.5 mg IH QIDRT Fluticasone/Salmeterol 115/21 [Advair Hfa 115/21 Common Med 09/13/20 07:00 Discontinued canister*] 2 puff IH BIDRT Tiotropium [place] Inhaler [Spiriva 18 Mcg/Cap Med 09/13/20 10:00 Discontinued Inhaler] 1 ea IH DAILY Patient Care Notes (Last 24 hours) 09/13/20 13:41 Nursing Note by Mariah Berger Pt walked in chanel approx 2000ft tolerated well no SOB noted Initialized on 09/13/20 13:41 - END OF NOTE 09/13/20 12:21 Case Management Note by Danay Bettencourt DR. NOTIFIED PATIENT REPORTED HE LOST HIS RESCUE INHALER WHEN HE CAME IN. HE GAVE ORDERS TO SEND IN NEW RX FOR INHALER. ORDER PLACED AT THIS TIME Initialized on 09/13/20 12:21 - END OF NOTE 09/13/20 12:15 (created 09/13/20 12:32) Nursing Note by Alvina Rivas Tele-cardiology with [facility] has started and is the music writer. Initialized on 09/13/20 12:32 - END OF NOTE 09/13/20 10:58 Nursing Note by Alvina Rivas I called consult for telecardiology with [facility] and faxed appropriate paperwork to office. Initialized on 09/13/20 10:58 - END OF NOTE - Vitals & Intake/Output Vital Signs: Vital Signs Temperature 98.3 F 09/13/20 12:00 Pulse Rate 89 09/13/20 12:00 Respiratory Rate 18 09/13/20 12:00 Blood Pressure 142/73 09/13/20 12:00 O2 Sat by Pulse Oximetry 95 09/13/20 12:00 Intake & Output: Intake & Output 09/11/20 09/12/20 09/13/20 09/14/20 11:59 11:59 11:59 11:59 Intake Total 720 240 Balance 720 240 Weight 103.6 kg - Lab Result Diagrams: 09/13/20 04:03 09/13/20 04:03 Micro Results-Entire Visit: Microbiology 09/12/20 23:17 Urine Culture - Final Clean Catch Midstream NO GROWTH 09/12/20 22:08 Blood Culture - Preliminary Blood NO GROWTH TO DATE 09/12/20 21:55 Blood Culture - Preliminary Blood NO GROWTH TO DATE - Radiology Exams Ordered Rad Exams-Entire Visit: Radiology Procedures Category Date Time Status CHEST 1 VIEW (PORTABLE) Stat Exams 09/12/20 21:28 Completed CHEST WITH CONTRAST [CT] Stat Exams 09/12/20 21:54 Completed HEAD WITHOUT CONTRAST [CT] Stat Exams 09/12/20 21:54 Completed - Procedures and Test Procedures and Tests throughout Hospitalization: Therapy Orders & Screens 09/12/20 21:31 Respiratory Therapy Assessment DAILY Comment: 09/13/20 00:18 Respiratory Therapy Consult ROUTINE Comment: Reason For Exam: 09/13/20 00:20 Respiratory MDI BID Comment: 09/13/20 00:35 Respiratory Therapy Assessment DAILY Comment: 09/13/20 00:56 RT Screen per Nursing Assess ONCE Comment: Protocol Order Physician Instructions: Greater than 3 points order RT Admission Screen Reason For Exam: Triggered on Admission Diagnosis: Asthma Exacerbation Diagnosis: Asthma Exacerbation Pneumonia: No Home O2: No Asthma: Yes CHF: No Home CPAP/BIPAP: No Home Nebs/MDI: Yes Total Points: 9 Discharge Exam General Appearance: no apparent distress, alert Neurologic Exam: alert, oriented x 3, cooperative, normal mood/affect, nml cereb ellar function, sensation nml, No motor deficits Eye Exam: PERRL, EOMI, eyes nml inspection Ears, Nose, Throat Exam: normal ENT inspection, pharynx normal, moist mucous membranes Neck Exam: normal inspection, non-tender, supple, full range of motion Respiratory Exam: normal breath sounds, lungs clear, No respiratory distress Cardiovascular Exam: regular rate/rhythm, normal heart sounds Gastrointestinal/Abdomen Exam: soft, No tenderness, No mass Male Genitalia Exam: deferred Rectal Exam: deferred Back Exam: normal inspection, normal range of motion, No CVA tenderness, No vertebral tenderness Extremity Exam: normal inspection, normal range of motion Skin Exam: normal color, warm, dry Final Diagnosis/Problem List - Final Discharge Diagnosis/Problem (1) Asthma exacerbation Status: Resolved Code(s): J45.901 - UNSPECIFIED ASTHMA WITH (ACUTE) EXACERBATION (2) Acute respiratory acidosis Status: Resolved Code(s): E87.2 - ACIDOSIS (3) Elevated troponin Status: Resolved Code(s): R77.8 - OTHER SPECIFIED ABNORMALITIES OF PLASMA PROTEINS (4) Leukocytosis Status: Resolved Code(s): D72.829 - ELEVATED WHITE BLOOD CELL COUNT, UNSPECIFIED - Discharge Discharge Date: 09/13/20 Disposition: Home, Self-Care Condition: Stable Prescriptions: New Albuterol Sulfate [Proair Hfa] 2 puff IH QIDPRN PRN #1 hfa.aer.ad PRN Reason: Shortness Of Breath Methylprednisolone Packet [Medrol Dosepack] 0 mg PO UD #1 packet Azithromycin [Zithromax Tri-Miah] 500 mg PO DAILY #1 tablet Continue Albuterol Sulfate [Proair Hfa] 8.5 gm IH QIDPRN PRN PRN Reason: Shortness Of Breath Fluticasone/Vilanterol [Breo Ellipta 100-25 Mcg INH] 1 each IH DAILY Tiotropium [place] [Spiriva Respimat] 1.25 mcg NEB DAILY Instructions: Asthma in Adults Follow up with: DARIANA NEWTON MD [ACTIVE STAFF] - 09/19/20 2:00 pm
== END 2020-09-13 14:00 | disposition home or self-care (01) ==
LOC: ED 21:17 → MED SURG 09-13 00:14
PROVIDERS: ADMIT General Practice; ATTEND General Practice
DX: J45.901 Unspecified asthma with (acute) exacerbation (principal); E87.2 Acidosis; R55 Syncope and collapse; R77.8 Other specified abnormalities of plasma proteins; D72.829 Elevated white blood cell count, unspecified; Z79.899 Other long term (current) drug therapy; R91.1 Solitary pulmonary nodule; R79.89 Other specified abnormal findings of blood chemistry
CPT/HCPCS: 36000; 36415; 36600; 70450; 71045; 71260; 80053; 80307; 81015; 82375; 82803; 83605; 83735; 84484; 85025; 85027; 85379; 87040; 87086; 93005; 93041; 93268; 94640; 94760; 94762; 96374; 96375; 99284; J2930; J7609; Q3014; U0003; A9270-GY; G0378